=== PATIENT | male | born 1945 | race Caucasian/White ===

== ENCOUNTER → 2023-06-30 13:44 | Outpatient (REF) | payer OTHER, SELFPAY | LOC: RAD 13:44 | PROVIDERS: ATTENDING PHYSICIAN Surgery Vascular Surgery; FAMILY PHYSICIAN Family Medicine | DX: I77.9 Disorder of arteries and arterioles, unspecified (principal) | CPT/HCPCS: 93922; 93925 ==

== ENCOUNTER → 2023-08-26 09:12 | Outpatient (REF) | payer OTHER, SELFPAY | LOC: RAD 09:12 | PROVIDERS: ATTENDING PHYSICIAN Specialist; FAMILY PHYSICIAN Family Medicine | DX: R93.89 Abnormal findings on diagnostic imaging of other specified body structures (principal) | CPT/HCPCS: 74246 ==

== ENCOUNTER → 2023-09-10 06:28 | Day surgery (SDC) | payer OTHER, SELFPAY ==
[2023-09-10 07:59] LABS: Glucose - Point of Care 165 mg/dl (70-99)
== END ==
LOC: GI 06:28
PROVIDERS: ATTENDING PHYSICIAN Specialist
DX: R93.3 Abnormal findings on diagnostic imaging of other parts of digestive tract (principal); R94.8 Abnormal results of function studies of other organs and systems; K31.89 Other diseases of stomach and duodenum; Q39.6 Congenital diverticulum of esophagus; Q39.9 Congenital malformation of esophagus, unspecified
CPT/HCPCS: 43239; 88305; 82962; 88342

== ENCOUNTER → 2023-09-16 13:43 | Outpatient (REF) | payer OTHER, SELFPAY | LOC: RAD 13:43 | PROVIDERS: ATTENDING PHYSICIAN Surgery Vascular Surgery; FAMILY PHYSICIAN Family Medicine | DX: I77.9 Disorder of arteries and arterioles, unspecified (principal) | CPT/HCPCS: 93922; 93925 ==

== ENCOUNTER → 2024-01-12 13:51 | Outpatient (REF) | payer OTHER, SELFPAY | LOC: RAD 13:51 | PROVIDERS: ATTENDING PHYSICIAN Surgery Vascular Surgery | DX: I77.9 Disorder of arteries and arterioles, unspecified (principal) | CPT/HCPCS: 93922; 93925 ==

== ENCOUNTER 2024-07-06 13:41 | Inpatient (IN) | payer OTHER, SELFPAY ==
[2024-07-06 10:32] VITALS: BP 128/65
[2024-07-06 11:08] VITALS: BMI 28.7
--- NOTE | 2024-07-06 12:19 | ED.GENMED ---
History of Present Illness
General
Chief Complaint: Skin Problem
Source: patient and spouse
Time Seen by Provider: 07/06/24 12:09
History of Present Illness
History of Present Illness:
This patient is a 78-year-old male who presents emergency department complaints of redness warmth and swelling of the right lower extremity that he first noticed on Friday as a small area and now has gotten progressively worse. He denies
associated fever, chills, sweats, nausea, vomiting, numbness, tingling, difficulty walking, weakness, drainage, or other complaints. Patient has a chronic right foot wound that is under the care of his head operator and is healing well. He denies
drainage from this area. Patient states he had the exact same findings approximately 2 months ago while in [place] and was briefly hospitalized for cellulitis.
Past History
Past History
ED Past Medical History: CAD, GERD, HTN, Hypercholesterolemia, NIDDM, Other (neuropathy) and Other (gout)
ED Past Surgical History: Cardiac and Orthopedic
Social History
Tobacco: Former smoker
Alcohol: Occasional
Drug: None
Personal:
Living: with family
Employment: Retired
Family History
Family History: Other
Phy Exam
Physical Exam
Physical Exam:
GENERAL: Alert , in no apparent distress
EYE: pupils equal and reactive
NECK: Supple, no significant adenopathy.
ENT: o/p clr, mmm.
CARDIAC: Regular rate and rhythm .
LUNGS: Clear breath sounds bilaterally, no acute respiratory distress, no wheezes/rales/rhonchi
ABDOMEN: Soft, without focal tenderness, no r/g, no cvat
NEUROLOGICAL: Alert and oriented, no focal neuro deficits
SKIN: Warm and dry, skin intact except for wound at the plantar aspect of the right foot without associated redness or drainage. There is a diffuse area of erythema warmth and slight swelling of the right tib-fib area, proximal to the ankle and
distal to the knee, no open areas, no drainage, no fluctuance, minimally tender.
MUSCULOSKELETAL: Normal pulses, W ell perfused.
PSYCH: Normal and appropriate interaction.
Course
Orders/Labs/Results
Orders:
Orders
07/06/24 12:23
CeFAZolin SODIUM [Ancef] 1,000 mg IM NOW STA
07/06/24 12:25
Complete Blood Count/No Diff Urgent
07/06/24 13:06
CeFAZolin SODIUM [Ancef] 1,000 mg IV NOW STA
07/06/24 13:13
Basic Metabolic Panel Urgent
07/06/24 13:18
US Periph Venous LOWER Ext RT Urgent
Comment:
Reason For Exam: edema
07/06/24 13:34
Admit/Transfer Patient As Directed
Co-Sign Provider:
Level of Care: Inpatient admission
Assign to:: Medical/Surgical
Physician / Group: Yared/hospitalist
Diagnosis: RLE cellulitis
Reason for Hospitalization: RLE cellulitis
Expected length of stay greater than two midnights?: Yes
ELOS- Estimated Length of Stay in days: 3
I certify the patient meets the requirements for IP care: Yes
PRN Pain Medication Management As Directed
May give lesser potent ordered pain med per pt: Yes
preference::
Protocol:: Medication orders for pain may be administered in a
manner that supports deferring to patient preference
when the pt is:
- Requesting an ordered lesser potent pain medication.
Least to most potent pain medications are defined
as: acetaminophen < NSAID < tramadol < opioids
(morphine, oxycodone, hydromorphone).
- Requesting a lesser dose of the same medication IF
ORDERED.
- Requesting a less intrusive route of administration
if both routes are prescribed by the provider (PO <
IV).
07/06/24 13:36
Code Status As Directed
Resuscitation Status: Full Code
Abnormal Lab Results
07/06/24 07/06/24
12:25 13:13
WBC 11.6 H 10^3/uL
(4.8-10.8)
RBC 4.62 L 10^6/uL
(4.70-6.10)
Hgb 12.9 L g/dL
(13.0-18.0)
MCHC 32.3 L g/dL
(33.0-37.0)
RDW 16.2 H %
(11.5-14.5)
MPV 11.2 H fL
(7.4-10.4)
Chloride 109 H mmol/L
(98-107)
BUN 23 H mg/dl
(9-20)
Glucose 119 H mg/dl
(70-99)
07/06/24 12:25
07/06/24 13:13
Vital Signs
Initial and Last Documented VS:
Initial Vital Signs
Temp Pulse Resp BP Pulse Ox
97.4 F 96 20 128/65 99
07/06/24 10:32 07/06/24 10:32 07/06/24 10:32 07/06/24 10:32 07/06/24 10:32
Last Documented Vital Signs
Temp Pulse Resp BP Pulse Ox
97.4 F 96 20 128/65 99
07/06/24 10:32 07/06/24 10:32 07/06/24 10:32 07/06/24 10:32 07/06/24 10:32
*Critical Care Note
Total Time (30-74mins, 75-104mins- exclusive of procedures): Not Applicable
Update Note
Update Note:
Patient presents to the Emergency Department with ____right leg pain swelling and redness
Number and Complexity of Problems Addressed at the Encounter
� Chronic conditions affecting care:
� Acute Exacerbation and/or Progression of Chronic Illness:
� Differential Diagnosis includes: But not limited to abscess, cellulitis, sunburn, nonspecific rash, etc.
Amount and/or Complexity of Data to be Reviewed and Analyzed
� I performed an independent evaluation of and my interpretation is:
EKG:
CT:
Xrays:
Laboratory Studies:mild leukocytosis
Other:
� Review of other/old records reveals:
� Clinical information was obtained by an independent historian:
� Prescriptions/Medications Considered but not given:
� Further testing considered but not performed:
Risk of Complications and/or Morbidity or Mortality of Patient Management
� Social determinants of health affecting care:
� Discussion with other providers (PCP, Hospitalists, Consultants, etc):
� Escalation of care including admission/observation vs risk of discharge considered: Warmth swelling redness all consistent with clinical diagnosis of cellulitis. Given extent will recommend observation and IV antibiotics.
Patient is not septic, clinically stable and well-appearing. D/w hospitalist for admission/observation. US pending.
ED Attending Note
-
Portions of this chart may have been created with voice recognition software.� Occasional wrong word or��sound alike� substitutions may have occurred due to the inherent limitations of voice recognition software.
Discharge Plan
Departure
Patient Disposition: Admit
Date of Disposition: 07/06/24
Time of Disposition: 13:18
Presentation/result/management discussed w/ accepting MD/DO: Hospitalist
Condition: Good
Discharge Problem:
Cellulitis
Interventions
Interventions:
*Risk Screen - Suicide Last Done: 07/06/24 10:32
*General Assessment Last Done: 07/06/24 10:32
*Neglect/Abuse Screening Last Done: 07/06/24 10:32
ED-Skin Assessment Last Done: 07/06/24 11:09
[2024-07-06 12:45] LABS: Hemoglobin 12.9 g/dL (13.0-18.0); Mean Corp Hgb Conc. 32.3 g/dL (33.0-37.0); Mean Corpuscular Hgb 27.9 pg (27.0-31.0); Mean Corpuscular Volume 86.6 fL (80.0-94.0); Mean Platelet Volume 11.2 fL (7.4-10.4); Platelet Count 195 10^3/uL (130-400); Red Blood Cell Count 4.62 10^6/uL (4.70-6.10); Red Cell Dist. Width 16.2 % (11.5-14.5); White Blood Cell Count 11.6 10^3/uL (4.8-10.8)
[2024-07-06] MEDS: ANCEF 1000 MG IV (13:07)
--- NOTE | 2024-07-06 13:22 | HPS.HSE ---
Family Physician
-
Family Physician: Patricia Lowry MD
Chief Complaint
-
R leg swelling, warmth, redness
History of Present Illness
HPI: 78-year-old male with PMH CAD, GERD, hypertension, hyperlipidemia, NIDDM, neuropathy, gout; p/w redness, warmth and swelling of the right lower extremity that he first noticed on Friday.
He denied to associated fever, chills, sweats, nausea, vomiting, numbness, tingling, difficulty walking, weakness, drainage, or other complaints.
Patient has a chronic right foot plantar wound that is under the care of his clinical care coordinator and is healing well. He denies drainage from this area.
Patient states he had the exact same findings approximately 2 months ago while in [place] and was briefly hospitalized for cellulitis.
Medical History
Past Medical History
Past Medical History: Reports Other
Additional Past Medical History:
CAD,
GERD,
hypertension,
hyperlipidemia,
NIDDM,
neuropathy,
gout,
Chronic R foot plantar wound
Past Surgical History: Reports Other
Social History
Tobacco: Non-smoker
Personal:
Living: With Family
Family History
Family History: Not pertinent
Allergies / Home Medications
Allergies reflects when Allergies were last updated in [employer].
Home Medications with original date entered in [employer]
Allergy/Medication List:
Medications on admission are unable to be verified or confirmed at this time.
Review of Systems
-
Skin: Reports See HPI and Rash (R samuel redness )
Physical Exam
Vital Signs
Vital Signs
Temp Pulse Resp BP Pulse Ox
36.3 C 96 20 128/65 99
07/06/24 10:32 07/06/24 10:32 07/06/24 10:32 07/06/24 10:32 07/06/24 10:32
Physical Exam
General: Well Developed, Well Nourished, No Apparent Distress, Comfortable and Conversant
HEENT: NormoCephalic, Moist mucous membranes and Atraumatic
Respiratory: Clear and Non Labored Respirations; No Accessory Resp Muscle Use
Cardiac: S1/S2 and Regular Rhythm; No Murmur or Rub
GI: Soft, Non Tender, Non Distended and Normal Bowel Sounds; No Organomegaly
Rectal: Deferred by Provider
Musculoskeletal: No Clubbing and No Cyanosis
Skin: Rash (R samuel)
Neuro: Awake and Alert
Psych: Calm and Intact Judgment/Insight
Laboratory Results
-
07/06/24 12:25
Data Reviewed
-
Lab Data: Labs Reviewed by me
Impression/Plan
-
HPI: 78-year-old male with PMH CAD, GERD, hypertension, hyperlipidemia, NIDDM, neuropathy, gout; p/w redness, warmth and swelling of the right lower extremity that he first noticed on Friday.
He denied to associated fever, chills, sweats, nausea, vomiting, numbness, tingling, difficulty walking, weakness, drainage, or other complaints.
Patient has a chronic right foot plantar wound that is under the care of his clinical care coordinator and is healing well. He denies drainage from this area.
Patient states he had the exact same findings approximately 2 months ago while in [place] and was briefly hospitalized for cellulitis.
A/P:
# RLE cellulitis
Continue Ancef
Wound care consult
Check right leg ultrasound to evaluate for underlying DVT
Other medical conditions:
# CAD,
# GERD,
# hypertension,
# hyperlipidemia,
# diabetes,
# neuropathy,
# gout
DVT prophylaxis: PROGRAM AIDE Xarelto
Full code
Pending med [facility] currently
[2024-07-06 13:42] LABS: Blood Urea Nitrogen 23 mg/dl (9-20); Carbon Dioxide 25 mmol/L (22-30); Chloride 109 mmol/L (98-107); Estimated Creatinine Clearance 84 ml/min; Glucose 119 mg/dl (70-99); Potassium 5.1 mmol/L (3.5-5.1); Sodium 142 mmol/L (135-145); eGFR > 60.00
[2024-07-06 15:05] VITALS: BP 138/81
[2024-07-06 15:06] VITALS: BMI 31.3
[2024-07-06 15:12] VITALS: BP 138/81
[2024-07-06 17:27] LABS: Glucose - Point of Care 99 mg/dl (70-99)
[2024-07-06] MEDS: NOVOLOG FLEXPEN-LOW RESISTANCE SC (17:45)
[2024-07-06] MEDS: XARELTO 2.5 MG PO (20:20)
[2024-07-06 21:07] LABS: Glucose - Point of Care 164 mg/dl (70-99)
[2024-07-06 23:00] VITALS: BP 123/78
[2024-07-06] MEDS: ANCEF 10 IV (23:17)
[2024-07-07 06:44] LABS: Hematocrit 39.8 % (39.0-52.0); Mean Corp Hgb Conc. 32.7 g/dL (33.0-37.0); Mean Corpuscular Hgb 28.2 pg (27.0-31.0); Mean Corpuscular Volume 86.3 fL (80.0-94.0); Mean Platelet Volume 11.7 fL (7.4-10.4); Platelet Count 189 10^3/uL (130-400); Red Blood Cell Count 4.61 10^6/uL (4.70-6.10); Red Cell Dist. Width 15.9 % (11.5-14.5); White Blood Cell Count 9.7 10^3/uL (4.8-10.8)
[2024-07-07 07:01] LABS: Blood Urea Nitrogen 18 mg/dl (9-20); Calcium 9.7 mg/dl (8.4-10.2); Carbon Dioxide 22 mmol/L (22-30); Chloride 111 mmol/L (98-107); Estimated Creatinine Clearance 84 ml/min; Glucose 130 mg/dl (70-99); Magnesium 1.9 mg/dl (1.6-2.3); Potassium 4.5 mmol/L (3.5-5.1); Sodium 142 mmol/L (135-145); eGFR > 60.00
[2024-07-07] MEDS: NOVOLOG FLEXPEN-LOW RESISTANCE SC ×3 (07:26→16:57)
[2024-07-07 07:50] LABS: Glucose - Point of Care 129 mg/dl (70-99)
[2024-07-07 07:54] VITALS: BP 112/64
[2024-07-07] MEDS: ZESTRIL 10 MG PO (07:59)
[2024-07-07] MEDS: CRESTOR 20 MG PO (07:59)
[2024-07-07] MEDS: ZYLOPRIM 300 MG PO (07:59)
[2024-07-07] MEDS: LOW STRENGTH ASPIRIN 81 MG PO (07:59)
[2024-07-07] MEDS: PEPCID 40 MG PO (08:00)
[2024-07-07] MEDS: PROTONIX 40 MG PO (08:00)
[2024-07-07] MEDS: XARELTO 2.5 MG PO ×2 (08:00→20:57)
--- NOTE | 2024-07-07 08:57 | WOUNDNOTE ---
[facility] RN note: Patient admitted with RLE cellulitis. He is followed by embedded systems software engineer Dr. Avalos from the [place]. He is independent in his wound care.
See H&P for complete history.
PMH: CAD, RLE bypass, HTN, neuropathy, gout, chronic R plantar foot ulcer which is healing as per patient.
Wound Location and type/assessment: Patient admitted with: R plantar 1st MTH diabetic ulcer to subcutaneous layer or deeper. No bone probed. Wound undermines distally about .6cm under callus. He last saw his embedded systems software engineer 1.5 weeks ago. Toes warm.
Last arterial Doppler 01/12/24 R TBI .93, L CHRISTINE 1.07. RLE with diffuse erythema.
Appetite: good.
Pressure redistribution devices in place: [employer] Accumax. Patient is mobile. He has diabetic sneakers with off loading inserts.
Plan: R foot dressing changed using patient's wound care supplies (Silvercell, 2x2 gauze pads, secured with 2 inch Medipore tape). Patient aware to wear his off loading shoes during ambulation.
Will confirm orders with Dr. Vail and updated RN Tramaine.
Care plan to be updated and will follow as needed. Patient to follow up with his embedded systems software engineer for wound follow up.
--- NOTE | 2024-07-07 09:00 | WOUNDNOTE ---
[facility] RN note: Patient admitted with RLE cellulitis. He is followed by manufacturing operations manager Dr. Avalos from the [place]. He is independent in his wound care.
See H&P for complete history.
PMH: CAD, RLE bypass, HTN, neuropathy, gout, chronic R plantar foot ulcer which is healing as per patient.
Wound Location and type/assessment: Patient admitted with: R plantar 1st MTH diabetic ulcer to subcutaneous layer or deeper, appears clean. No bone probed. Wound undermines distally about .6cm under callus. He last saw his manufacturing operations manager 1.5 weeks ago.
+R pedal pulse heard faintly via portable Doppler as per MARTÍNEZ Redd A. L pedal pulse present. Toes warm. Last arterial Doppler 01/12/24 R TBI .93, L CHRISTINE 1.07. RLE with diffuse erythema. Patient stated he has follow up appointment with Dr. Redd including
follow up arterial Doppler in 2 weeks.
Appetite: good.
Pressure redistribution devices in place: Vers[employer] Accumax. Patient is mobile. He has diabetic sneakers with off loading inserts.
Plan: R foot dressing changed using patient's wound care supplies (Silvercell, 2x2 gauze pads, secured with 2 inch Medipore tape). Patient aware to wear his off loading shoes during ambulation.
Will confirm orders with Dr. Vail and updated MARTÍNEZ Redd.
Care plan to be updated and will follow as needed. Patient to follow up with Vascular surgeon and his manufacturing operations manager for wound follow up.
[2024-07-07 09:08] LABS: Glycohemoglobin (HgbA1c) 7.9 % (4.0-5.6)
--- NOTE | 2024-07-07 09:13 | WOUNDNOTE ---
R PLANTAR 1ST MTH
--- NOTE | 2024-07-07 09:14 | WOUNDNOTE ---
R PLANTAR 1ST MTH
[2024-07-07] MEDS: ANCEF 10 IV ×2 (10:09→23:19)
--- NOTE | 2024-07-07 10:21 | W.PN.HOSP.TC ---
Today's Communication/Plan
-
see A/P
Assessment / Plan
Assessment / Plan
HPI: 78-year-old male with PMH CAD, GERD, hypertension, hyperlipidemia, NIDDM, neuropathy, gout; p/w redness, warmth and swelling of the right lower extremity that he first noticed on Friday.
He denied to associated fever, chills, sweats, nausea, vomiting, numbness, tingling, difficulty walking, weakness, drainage, or other complaints.
Patient has a chronic right foot plantar wound that is under the care of his emt driver and is healing well. He denies drainage from this area.
Patient states he had the exact same findings approximately 2 months ago while in [place] and was briefly hospitalized for cellulitis.
A/P:
# RLE cellulitis
Continue Ancef, add doxycycline
Wound care on board
right leg ultrasound neg for DVT
Other medical conditions:
# CAD,
# GERD,
# hypertension,
# hyperlipidemia,
# diabetes,
# neuropathy,
# gout
DVT prophylaxis: WIRE ROLLER Xarelto
Full code
Anticipated Discharge: 24 - 48 hours
Subjective/Interval History
-
Date of Service: July 07, 2024
Objective Data
-
Labs:
Laboratory Results
07/07/24
06:18
WBC 9.7
Hgb 13.0
Hct 39.8
Plt Count 189
Sodium 142
Potassium 4.5
Chloride 111 H
Carbon Dioxide 22
BUN 18
Creatinine 0.8
Glucose 130 H
Calcium 9.7
Vital Signs:
Vital Signs
Temp Pulse Resp BP Pulse Ox
36.6 C 80 18 112/64 98
07/07/24 07:54 07/07/24 07:54 07/07/24 07:54 07/07/24 07:54 07/07/24 07:54
I&O
07/06/24 07/07/24 07/08/24
06:59 06:59 06:59
Intake Total 480 / 480
Balance 480 / 480
Review of Systems
-
All other systems: Reviewed and negative
Skin: Reports Rash (R leg)
Physical Exam
-
General: Well Developed, Well Nourished, No Apparent Distress, Comfortable and Conversant; Negative Respiratory Distress
HEENT: Normocephalic, Atraumatic, Nose Appears Normal and Ears Appear Normal; Negative Oxygen
Respiratory: Clear to Auscultation and Non Labored Respirations; Negative Accessory Resp Muscle Use
Cardiac: Regular Rhythm and S1/S2
GI: Soft, Nontender, Nondistended and Normal Bowel Sounds
Skin: Warm, Dry and Rash (R leg)
Neuro: Awake, Alert, Oriented and AO x 3
Psych: Calm and Intact Judgement/Insight
Data Reviewed
-
Ultrasound: Report Reviewed by me
Labs: Labs Reviewed by me
[2024-07-07] MEDS: VIBRAMYCIN 100 MG PO ×2 (11:02→20:57)
[2024-07-07 11:50] LABS: Glucose - Point of Care 125 mg/dl (70-99)
[2024-07-07] MEDS: DULCOLAX 10 MG RECTAL (15:12)
--- NOTE | 2024-07-07 16:09 | DOWNTIME ---
There was a [employer] Client Qa Test Lead Downtime on 07/07/2024 from 1230 to 07/07/2024 at 1550. Downtime documentation of patient's care, including medication administrations, has been reconciled in the electronic record per guidelines. Refer to the
patient's paper chart under the miscellaneous tab to see printed paper medication records and downtime forms.
[2024-07-07 16:31] VITALS: BP 131/62
[2024-07-07 16:34] LABS: Glucose - Point of Care 178 mg/dl (70-99)
--- NOTE | 2024-07-07 17:23 | CM ---
Addendum entered by ELISHA Robles 07/07/24 17:32:
Patient does have a CPAP.
Original Note:
Met with patient to obtain information for assessment. Patient stated that he lives with his in a single multi story home with three steps to enter. He described himself as independent with his ADLs, personal care, dressing and bathing. He can
cook, clean, do household personal assistant and laundry. He has had VN in the past but is not current. He was in a SNF years ago. He has no DME.
Patient has a prescription plan and uses, [facility] for all of his medications.
Patient's PCP, Patricia Lowry.
Plan: Case management will continue to follow and assist with discharge planning. Will watch for VN needs.
[2024-07-07 21:07] LABS: Glucose - Point of Care 199 mg/dl (70-99)
[2024-07-07 23:56] VITALS: BP 108/64
[2024-07-08] MEDS: SENOKOT-S 1 TABLET PO ×2 (06:24→20:42)
[2024-07-08] MEDS: MIRALAX 17 GRAMS PO (06:25)
[2024-07-08 07:00] VITALS: BP 123/68
[2024-07-08 07:06] LABS: Hematocrit 41.4 % (39.0-52.0); Hemoglobin 13.3 g/dL (13.0-18.0); Mean Corp Hgb Conc. 32.1 g/dL (33.0-37.0); Mean Corpuscular Hgb 27.9 pg (27.0-31.0); Mean Corpuscular Volume 86.8 fL (80.0-94.0); Mean Platelet Volume 11.7 fL (7.4-10.4); Platelet Count 199 10^3/uL (130-400); Red Blood Cell Count 4.77 10^6/uL (4.70-6.10); Red Cell Dist. Width 15.9 % (11.5-14.5); White Blood Cell Count 9.3 10^3/uL (4.8-10.8)
[2024-07-08 07:11] LABS: Glucose - Point of Care 151 mg/dl (70-99)
[2024-07-08 07:30] LABS: Blood Urea Nitrogen 21 mg/dl (9-20); Calcium 9.8 mg/dl (8.4-10.2); Carbon Dioxide 23 mmol/L (22-30); Chloride 110 mmol/L (98-107); Estimated Creatinine Clearance 84 ml/min; Glucose 142 mg/dl (70-99); Sodium 142 mmol/L (135-145); eGFR > 60.00
[2024-07-08] MEDS: NOVOLOG FLEXPEN-LOW RESISTANCE SC ×3 (08:48→17:33)
[2024-07-08] MEDS: PROTONIX 40 MG PO (08:49)
[2024-07-08] MEDS: ZYLOPRIM 300 MG PO (08:49)
[2024-07-08] MEDS: ZESTRIL 10 MG PO (08:49)
[2024-07-08] MEDS: XARELTO 2.5 MG PO ×2 (08:49→20:34)
[2024-07-08] MEDS: VIBRAMYCIN 100 MG PO ×2 (08:49→20:34)
[2024-07-08] MEDS: PEPCID 40 MG PO (08:49)
[2024-07-08] MEDS: LOW STRENGTH ASPIRIN 81 MG PO (08:49)
--- NOTE | 2024-07-08 09:53 | W.PN.HOSP.TC ---
Today's Communication/Plan
-
see A/P
Assessment / Plan
Assessment / Plan
HPI: 78-year-old male with PMH CAD, GERD, hypertension, hyperlipidemia, NIDDM, neuropathy, gout; p/w redness, warmth and swelling of the right lower extremity that he first noticed on Friday.
He denied to associated fever, chills, sweats, nausea, vomiting, numbness, tingling, difficulty walking, weakness, drainage, or other complaints.
Patient has a chronic right foot plantar wound that is under the care of his elevator worker and is healing well. He denies drainage from this area.
Patient states he had the exact same findings approximately 2 months ago while in [place] and was briefly hospitalized for cellulitis.
A/P:
# RLE cellulitis
Continue Ancef, added doxycycline
Wound care on board
right leg ultrasound neg for DVT
Rash improving, cont IV Abx for 1 more day
Other medical conditions:
# CAD,
# GERD,
# hypertension,
# hyperlipidemia,
# diabetes,
# neuropathy,
# gout
DVT prophylaxis: RN HEMATOLOGY Xarelto
Full code
Anticipated Discharge: Within 24 hours
Subjective/Interval History
-
Date of Service: July 08, 2024
Objective Data
-
Labs:
Laboratory Results
07/08/24
06:26
WBC 9.3
Hgb 13.3
Hct 41.4
Plt Count 199
Sodium 142
Potassium 5.0
Chloride 110 H
Carbon Dioxide 23
BUN 21 H
Creatinine 0.8
Glucose 142 H
Calcium 9.8
Vital Signs:
Vital Signs
Temp Pulse Resp BP Pulse Ox
36.4 C 78 18 123/68 100
07/08/24 07:00 07/08/24 07:00 07/08/24 07:00 07/08/24 07:00 07/08/24 07:00
I&O
07/07/24 07/08/24 07/09/24
06:59 06:59 06:59
Intake Total 480 / 480 480 / 480
Balance 480 / 480 480 / 480
Review of Systems
-
All other systems: Reviewed and negative
Skin: Reports Rash (R leg rash improving )
Physical Exam
-
General: Well Developed, Well Nourished, No Apparent Distress, Comfortable and Conversant; Negative Respiratory Distress
HEENT: Normocephalic, Atraumatic, Nose Appears Normal and Ears Appear Normal; Negative Oxygen
Respiratory: Clear to Auscultation and Non Labored Respirations; Negative Accessory Resp Muscle Use
Cardiac: Regular Rhythm and S1/S2
GI: Soft, Nontender, Nondistended and Normal Bowel Sounds
Skin: Warm, Dry and Rash (R leg rash improving )
Neuro: Awake, Alert, Oriented and AO x 3
Psych: Calm and Intact Judgement/Insight
Data Reviewed
-
Ultrasound: Report Reviewed by me
Labs: Labs Reviewed by me
[2024-07-08] MEDS: ANCEF 10 IV ×2 (11:28→22:00)
[2024-07-08 11:29] LABS: Glucose - Point of Care 163 mg/dl (70-99)
[2024-07-08 17:00] VITALS: BP 113/60
[2024-07-08 17:28] LABS: Glucose - Point of Care 165 mg/dl (70-99)
[2024-07-08] MEDS: CRESTOR 20 MG PO (20:34)
[2024-07-08 21:22] LABS: Glucose - Point of Care 266 mg/dl (70-99)
[2024-07-08 23:18] VITALS: BP 107/66
[2024-07-09 06:39] LABS: Hematocrit 38.4 % (39.0-52.0); Hemoglobin 12.3 g/dL (13.0-18.0); Mean Corpuscular Hgb 27.9 pg (27.0-31.0); Mean Corpuscular Volume 87.1 fL (80.0-94.0); Mean Platelet Volume 11.3 fL (7.4-10.4); Platelet Count 202 10^3/uL (130-400); Red Blood Cell Count 4.41 10^6/uL (4.70-6.10); Red Cell Dist. Width 15.9 % (11.5-14.5); White Blood Cell Count 9.6 10^3/uL (4.8-10.8)
[2024-07-09] MEDS: MIRALAX 17 GRAMS PO (06:40)
[2024-07-09 07:00] LABS: Blood Urea Nitrogen 22 mg/dl (9-20); Calcium 9.6 mg/dl (8.4-10.2); Carbon Dioxide 26 mmol/L (22-30); Chloride 110 mmol/L (98-107); Estimated Creatinine Clearance 84 ml/min; Glucose 167 mg/dl (70-99); Potassium 4.6 mmol/L (3.5-5.1); Sodium 143 mmol/L (135-145); eGFR > 60.00
[2024-07-09 07:36] LABS: Glucose - Point of Care 173 mg/dl (70-99)
[2024-07-09 07:52] VITALS: BP 111/70
[2024-07-09] MEDS: VIBRAMYCIN 100 MG PO ×2 (08:26→21:10)
[2024-07-09] MEDS: ZYLOPRIM 300 MG PO (08:26)
[2024-07-09] MEDS: ZESTRIL 10 MG PO (08:26)
[2024-07-09] MEDS: PROTONIX 40 MG PO (08:26)
[2024-07-09] MEDS: PEPCID 40 MG PO (08:26)
[2024-07-09] MEDS: XARELTO 2.5 MG PO ×2 (08:26→21:10)
[2024-07-09] MEDS: LOW STRENGTH ASPIRIN 81 MG PO (08:26)
[2024-07-09] MEDS: NOVOLOG FLEXPEN-LOW RESISTANCE SC (08:34)
--- NOTE | 2024-07-09 10:10 | W.PN.HOSP.TC ---
Today's Communication/Plan
-
see A/P
Assessment / Plan
Assessment / Plan
HPI: 78-year-old male with PMH CAD, GERD, hypertension, hyperlipidemia, NIDDM, neuropathy, gout; p/w redness, warmth and swelling of the right lower extremity that he first noticed on Friday.
He denied to associated fever, chills, sweats, nausea, vomiting, numbness, tingling, difficulty walking, weakness, drainage, or other complaints.
Patient has a chronic right foot plantar wound that is under the care of his newspaper managing editor and is healing well. He denies drainage from this area.
Patient states he had the exact same findings approximately 2 months ago while in [place] and was briefly hospitalized for cellulitis.
A/P:
# RLE cellulitis
Continue Ancef, added doxycycline
Wound care on board
right leg ultrasound neg for DVT
cellulitis improving slowly, also with diminished pulses by bedside Doppler, Vascular CS
Check BL LE CHRISTINE
Other medical conditions:
# CAD,
# GERD,
# hypertension,
# hyperlipidemia,
# diabetes,
# neuropathy,
# gout
DVT prophylaxis: FINANCIAL OPERATIONS CLERK Xarelto
Full code
Anticipated Discharge: 24 - 48 hours
Subjective/Interval History
-
Date of Service: July 09, 2024
Objective Data
-
Labs:
Laboratory Results
07/09/24
06:17
WBC 9.6
Hgb 12.3 L
Hct 38.4 L
Plt Count 202
Sodium 143
Potassium 4.6
Chloride 110 H
Carbon Dioxide 26
BUN 22 H
Creatinine 0.8
Glucose 167 H
Calcium 9.6
Vital Signs:
Vital Signs
Temp Pulse Resp BP Pulse Ox
36.4 C 89 18 111/70 98
07/09/24 07:52 07/09/24 07:52 07/09/24 07:52 07/09/24 07:52 07/09/24 07:52
I&O
07/08/24 07/09/24 07/10/24
06:59 06:59 06:59
Intake Total 480 / 480 420 / 420
Balance 480 / 480 420 / 420
--- NOTE | 2024-07-09 10:49 | CON.VAS ---
Consultation
Consultation Request
Date/Time Consultation Performed: 07/09/24 12:00
Performing Provider: Ashlyn
Reason for Consultation: Cellulitis/chronic right foot wound
Medical History
-
Chief Complaint: RLE swelling, redness
History of Present Illness:
78 yo male with PMH significant for CAD, HTN, hyperlipidemia, NIDDM, neuropathy presented to our ER on 07/06/24 for RLE cellulitis. Pt admitted to IV antibiotics. Pt had noted redness, warmth and swelling to the RLE on Friday. Denied any other
symptomatology. Patient has a chronic right plantar wound that is followed by his service tech outpatient. He denies drainage from this area. Pt was hospitalized for the same issue 2 months ago while in [place].
Last office visit 01/12/[address] Redd. At that time ultrasound was reviewed and bypass patent, no stenosis noted, distal anastomosis without significant velocity elevation. Plan at that time was for ultrasound in 6 months as well as follow-up
which would have been in a few weeks from now.
Vascular consultation for diminished pulse exam. Pt seen at bedside this afternoon. Right foot plantar wound pictures in wound care notes. Pt has easily palpable DP and PT pulses in the right foot. Foot is warm and pink. Wound dry. Erythema marked
with skin marker from right knee to ankle. Mildly edematous to that area as well.
Vascular surgery history:
12/22/18- aortogram, pelvic angiogram, LLE arteriogram, balloon angioplasty L TP trunk and peroneal artery.
09/27/20- aortogram, pelvic angiogram, RLE arteriogram- nonhealing R foot wound
11/29/20- R below knee popliteal artery to distal posterior tibial artery bypass with reversed RUE cephalic vein.
07/31/22- Aortogram and pelvic angiogram. 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
Past Medical History
Past Medical History: Other (CAD, GERD, hypertension, hyperlipidemia, NIDDM, neuropathy, gout, chronic right plantar wound)
Past Surgical History: Other (RLE bypass)
Social History
Tobacco: Non-Smoker
Personal:
Living: With Family
Family History
Family History: Reviewed & Not Pertinent
Allergies / Home Medications
Allergy/AdvReac Type Severity Reaction Status Date / Time
clindamycin Allergy heartburn Verified 07/06/24 10:35
Gadolinium-Containing Allergy Hives Verified 07/06/24 10:35
Contrast Medi
morphine Allergy 'don't Verified 07/06/24 10:35
give it to
me'
arrested
one time
�Medication �Instructions �Recorded �Confirmed �Type
cyanocobalamin (vitamin B-12) 1,000 mcg PO DAILY Supplement 07/29/14 07/06/24 History
1,000 mcg tablet
loratadine 10 mg tablet 10 mg PO DAILY Allergies 07/29/14 07/06/24 History
pantoprazole 40 mg tablet,delayed 40 mg PO DAILY Gastrointestinal 12/22/16 07/06/24 History
release issue
allopurinol 300 mg tablet 300 mg PO DAILY Gout 12/18/18 07/06/24 History
lisinopril 10 mg tablet 10 mg PO DAILY Blood pressure 12/18/18 07/06/24 History
multivitamin with folic acid 400 1 tab PO DAILY Supplement 12/18/18 07/06/24 History
mcg tablet (Tab-A-Katie)
nitroglycerin 0.4 mg sublingual 0.4 mg sublingual [id number] PRN 12/18/18 07/06/24 History
tablet chest pain
empagliflozin 25 mg tablet 12.5 mg PO DAILY Diabetes 09/20/20 07/06/24 History
(Jardiance)
glipizide 10 mg tablet 10 mg PO BID Diabetes 09/20/20 07/06/24 History
rivaroxaban 2.5 mg tablet (Xarelto) 2.5 mg PO BID #120 tabs 12/01/20 07/06/24 Rx
ascorbic acid (vitamin C) 500 mg 500 mg PO DAILY Supplement 07/31/22 07/06/24 History
tablet (Vitamin C)
aspirin 81 mg chewable tablet 81 mg PO DAILY #90 tabs 07/31/22 07/06/24 Rx
aluminum hydrox-magnesium carb 160 2 tab PO DAILYPRN PRN gerd 07/06/24 07/06/24 History
mg-105 mg chewable tablet
biotin 10,000 mcg capsule 10,000 mcg PO DAILY Supplement 07/06/24 07/06/24 History
gabapentin 100 mg capsule 100 mg PO DAILYPRN PRN mild pain 07/06/24 07/06/24 History
metformin 1,000 mg tablet 1,000 mg PO BID Diabetes 07/06/24 07/06/24 History
rosuvastatin 40 mg tablet (Crestor) 40 mg PO HS High Cholesterol 07/06/24 07/06/24 History
Review of Systems
-
History Source: Patient
All other systems: Negative unless noted
Constitutional: Reports No Symptoms
EENT: Reports No Symptoms
Respiratory: Reports No Symptoms
Cardiac: Reports No Symptoms
Vascular: Denies Leg Pain / Claudication
Abdomen/GI: Reports No Symptoms
: Reports No Symptoms
Musculoskeletal: Reports Edema
Skin: Reports Other (redness/swelling right samuel, chronic plantar wound)
Neurological: Reports No Symptoms
Physical Exam
Vital Signs
Temp Pulse Resp BP Pulse Ox
97.5 F 89 18 111/70 98
07/09/24 07:52 07/09/24 07:52 07/09/24 07:52 07/09/24 07:52 07/09/24 07:52
Lab Results
07/09/24 06:17
07/09/24 06:17
Physical Exam
General: No Apparent Distress
HEENT: Normocephalic and Atraumatic
Respiratory: Non Labored Respirations
Cardiac: Negative JVD
GI: Soft and Non Tender
Musculoskeletal: No Clubbing, No Cyanosis and Edema (slight to the right samuel)
Skin: Warm and Other (see wound care notes)
Neuro: Awake, Alert and Oriented
Psych: Calm
Pulses: Right Dorsalis Pedis: +2 and Right Posterior Tibial: +2
Assessment / Plan
-
78 yo male well known to vascular service admitted presently for cellulitis
Pt with known RLE bypass, chronic right plantar wound
Palpable PT and DP pulse on the right side
Plan:
-LE US iliana/tbi pending
-Antibiotics
-local wound care
-Will follow up with pt with US results
Data Reviewed
-
Labs: Labs Reviewed by me
[2024-07-09] MEDS: ANCEF 10 IV ×2 (11:12→20:50)
[2024-07-09 11:44] LABS: Glucose - Point of Care 184 mg/dl (70-99)
[2024-07-09] MEDS: NOVOLOG FLEXPEN-LOW RESISTANCE 1 UNITS SC ×2 (12:14→17:44)
[2024-07-09 15:55] VITALS: BP 114/54
[2024-07-09 17:04] LABS: Glucose - Point of Care 192 mg/dl (70-99)
[2024-07-09] MEDS: CRESTOR 20 MG PO (17:45)
[2024-07-09 21:03] LABS: Glucose - Point of Care 245 mg/dl (70-99)
[2024-07-09 23:35] VITALS: BP 128/67
[2024-07-10] MEDS: ANCEF 10 IV ×2 (03:41→12:12)
[2024-07-10 07:00] VITALS: BP 129/75
[2024-07-10 08:01] LABS: Glucose - Point of Care 148 mg/dl (70-99)
[2024-07-10 08:54] LABS: Hematocrit 40.2 % (39.0-52.0); Hemoglobin 12.6 g/dL (13.0-18.0); Mean Corp Hgb Conc. 31.3 g/dL (33.0-37.0); Mean Corpuscular Hgb 27.5 pg (27.0-31.0); Mean Corpuscular Volume 87.6 fL (80.0-94.0); Mean Platelet Volume 11.8 fL (7.4-10.4); Platelet Count 201 10^3/uL (130-400); Red Blood Cell Count 4.59 10^6/uL (4.70-6.10); White Blood Cell Count 8.6 10^3/uL (4.8-10.8)
[2024-07-10] MEDS: NOVOLOG FLEXPEN-LOW RESISTANCE SC (09:03)
[2024-07-10] MEDS: VIBRAMYCIN 100 MG PO (09:05)
[2024-07-10] MEDS: ZESTRIL 10 MG PO (09:05)
[2024-07-10] MEDS: PEPCID 40 MG PO (09:05)
[2024-07-10] MEDS: XARELTO 2.5 MG PO (09:05)
[2024-07-10] MEDS: PROTONIX 40 MG PO (09:05)
[2024-07-10] MEDS: LOW STRENGTH ASPIRIN 81 MG PO (09:05)
[2024-07-10] MEDS: ZYLOPRIM 300 MG PO (09:06)
--- NOTE | 2024-07-10 09:15 | W.PN.UPDATE ---
Update Note
Progress Note Update
Studies reviewed
Bypass patent RLE
TBI normal
Cellulitis improving
F/U with Redd in the office as scheduled
Call with questions/concerns
[id number]
Vascular Surgery
[2024-07-10 09:45] LABS: Blood Urea Nitrogen 22 mg/dl (9-20); Calcium 9.8 mg/dl (8.4-10.2); Carbon Dioxide 22 mmol/L (22-30); Chloride 108 mmol/L (98-107); Estimated Creatinine Clearance 84 ml/min; Glucose 167 mg/dl (70-99); Potassium 4.8 mmol/L (3.5-5.1); Sodium 142 mmol/L (135-145); eGFR > 60.00
[2024-07-10 11:36] LABS: Glucose - Point of Care 205 mg/dl (70-99)
--- NOTE | 2024-07-10 11:39 | W.PN.HOSP.TC ---
Today's Communication/Plan
-
Discharge after noon dose of ancef.
Assessment / Plan
Assessment / Plan
HPI/presentation:
78-year-old male with PMH of
CAD,
GERD,
hypertension,
hyperlipidemia,
NIDDM,
neuropathy,
gout;
p/w redness, warmth and swelling of the right lower extremity that he first noticed on Friday. He denied to associated fever, chills, sweats, nausea, vomiting, numbness, tingling, difficulty walking, weakness, drainage, or other complaints.
Patient has a chronic right foot plantar wound that is under the care of his bag repairer and is healing well. He denies drainage from this area. Patient states he had the exact same findings approximately 2 months ago while in [place] and was briefly
hospitalized for cellulitis.
A/P and hospital course by problem:
1. RLE cellulitis - resolving
Take todays noon dose of Ancef, then d/c home on keflex and the added doxycycline
Wound care on was consulted for his care
right leg ultrasound neg for DVT
cellulitis improving
He had diminished pulses by bedside Doppler, Vascular CS
Checked BL LE CHRISTINE - no acute issues
Other medical conditions that did not require intervention:
# CAD,
# GERD,
# hypertension,
# hyperlipidemia,
# diabetes,
# neuropathy,
# gout
DVT prophylaxis: HAND II TUBE BENDER Xarelto
Full code
Anticipated Discharge: Today
Subjective/Interval History
-
Date of Service: July 10, 2024
Feeling well. Leg much better. Wants to go home.
Objective Data
-
Labs:
Laboratory Results
07/10/24
07:44
WBC 8.6
Hgb 12.6 L
Hct 40.2
Plt Count 201
Sodium 142
Potassium 4.8
Chloride 108 H
Carbon Dioxide 22
BUN 22 H
Creatinine 0.8
Glucose 167 H
Calcium 9.8
Vital Signs:
Vital Signs
Temp Pulse Resp BP Pulse Ox
97.5 F 78 16 129/75 99
07/10/24 07:00 07/10/24 07:00 07/10/24 07:00 07/10/24 07:00 07/10/24 07:00
I&O
07/09/24 07/10/24 07/11/24
06:59 06:59 06:59
Intake Total 420 / 420 1200 / 1200
Balance 420 / 420 1200 / 1200
Review of Systems
-
History Source: Patient
All other systems: Reviewed and negative
Physical Exam
-
General: Well Developed, Well Nourished, No Apparent Distress and Comfortable
HEENT: Normocephalic, Atraumatic, Nose Appears Normal and Ears Appear Normal
Respiratory: Clear to Auscultation
Cardiac: Regular Rhythm and S1/S2
GI: Soft, Nontender and Nondistended
Musculoskeletal: No Clubbing, No Cyanosis and No Edema
Skin: Warm and Dry
Neuro: Awake, Alert, Oriented and AO x 3
Psych: Calm
Data Reviewed
-
Labs: Labs Reviewed by me
--- NOTE | 2024-07-10 11:55 | W.DCSUMMARY ---
Discharge Summary
Discharge Data
Date of Admission: 07/06/24
Date of Discharge: 07/10/24
Total time spent discharging patient (in min): 45
-
Pending Results: No
Hospital Course
HPI/ initial presentation:
78-year-old male with PMH and chronic diagnoses of:
CAD,
GERD,
hypertension,
hyperlipidemia,
NIDDM,
neuropathy,
gout;
p/w redness, warmth and swelling of the right lower extremity that he first noticed on Friday. He denied to associated fever, chills, sweats, nausea, vomiting, numbness, tingling, difficulty walking, weakness, drainage, or other complaints.
Patient has a chronic right foot plantar wound that is under the care of his day care aide and is healing well. He denies drainage from this area. Patient states he had the exact same findings approximately 2 months ago while in [place] and was briefly
hospitalized for cellulitis.
A/P and hospital course by problem:
1. RLE cellulitis - resolving
plan is to take today's noon dose of Ancef, then d/c home on keflex and the added doxycycline
Wound care on was consulted for his care
right leg ultrasound neg for DVT
cellulitis improving
He had diminished pulses by bedside Doppler, Vascular CS
Checked BL LE CHRISTINE - no acute issues
Follow up with PCP next week
Other medical conditions that did not require intervention:
# CAD,
# GERD,
# hypertension,
# hyperlipidemia,
# diabetes,
# neuropathy,
# gout
DVT prophylaxis: CAMERA REPAIRMAN Xarelto
Full code
Discharge Plan
-
Patient Disposition: Home (Routine Discharge)
Discharge Diagnosis/Procedures: Cellulitis
Diet: As tolerated
Activity: As tolerated
Driving Restrictions: As prior to admission
Bathing Restrictions: None
Activity Restrictions/Additional Instructions:
Wound Care Instructions
R plantar foot ulcer-clean with saline, Silvercel, 2x2 gauze pads, secure with Medipore type tape, change daily and as needed for drainage.
Off loading shoes.
Follow up with vascular surgeon.
Follow up with your day care aide for wound follow up.
Referrals:
Patricia Lowry MD [Family Provider, [facility]]
Diaz Redd MD [Active, Vascular Surgery] - 07/30/24 2:45 pm
Referral Note: Vascular surgery office follow up (we cancelled your ultrasound appt since we completed it during your admission)
Prescriptions:
New
doxycycline hyclate 100 mg Capsule
100 mg PO Q12 Qty: 20 0RF
famotidine 40 mg Tablet
40 mg PO DAILY Qty: 30 0RF
cephalexin 500 mg capsule
500 mg PO Q8H Qty: 30 0RF
Continued
cyanocobalamin (vitamin B-12) 1,000 MCG tablet
1,000 mcg PO DAILY
loratadine 10 MG tablet
10 mg PO DAILY
pantoprazole 40 MG tablet,delayed release (DR/EC)
40 mg PO DAILY
lisinopril 10 MG tablet
10 mg PO DAILY
nitroglycerin 0.4 MG tablet, sublingual
0.4 mg sublingual [id number] PRN (Reason: chest pain)
Patient Comments:
allopurinol 300 MG tablet
300 mg PO DAILY
multivitamin with folic acid [Tab-A-Katie] 1 TABLET tablet
1 tab PO DAILY
glipizide 10 MG tablet
10 mg PO BID
Jardiance 25 MG tablet
12.5 mg PO DAILY
rivaroxaban [Xarelto] 2.5 MG tablet
2.5 mg PO BID Qty: 120 0RF
ascorbic acid (vitamin C) [Vitamin C] 500 mg Tablet
500 mg PO DAILY
aspirin 81 mg Tablet,Chewable
81 mg PO DAILY Qty: 90 0RF
biotin 10,000 mcg Capsule
10,000 mcg PO DAILY
metformin 1,000 mg Tablet
1,000 mg PO BID
gabapentin 100 mg Capsule
100 mg PO DAILYPRN PRN (Reason: mild pain)
aluminum hydrox-magnesium carb 160-105 mg Tablet,Chewable
2 tab PO DAILYPRN PRN (Reason: gerd)
rosuvastatin [Crestor] 40 mg Tablet
40 mg PO HS
Discharge Orders:
Discharge Patient (As Directed); Ordered 07/10/24
Ordered By: Esau Brenner
Discharge Date and Time
Print Language: FRENCH
[2024-07-10] MEDS: NOVOLOG FLEXPEN-LOW RESISTANCE 2 UNITS SC (12:12)
[2024-07-10 12:45] VITALS: BP 134/73
== END 2024-07-10 14:10 | disposition home or self-care (01) | DRG 603 ==
LOC: 4 EAST ACU 13:41
PROVIDERS: ADMITTING PHYSICIAN Internal Medicine; ATTENDING PHYSICIAN Internal Medicine; CONSULT PHYSICIAN Surgery Vascular Surgery; EMERGENCY PHYSICIAN Emergency Medicine; FAMILY PHYSICIAN Family Medicine
DX: L03.115 Cellulitis of right lower limb (principal); L97.419 Non-pressure chronic ulcer of right heel and midfoot with unspecified severity; M79.89 Other specified soft tissue disorders; E11.40 Type 2 diabetes mellitus with diabetic neuropathy, unspecified; E78.00 Pure hypercholesterolemia, unspecified; I10 Essential (primary) hypertension; I25.10 Atherosclerotic heart disease of native coronary artery without angina pectoris; K21.9 Gastro-esophageal reflux disease without esophagitis; Z87.891 Personal history of nicotine dependence; Z88.1 Allergy status to other antibiotic agents; Z88.5 Allergy status to narcotic agent; Z88.8 Allergy status to other drugs, medicaments and biological substances; Z79.84 Long term (current) use of oral hypoglycemic drugs; Z79.01 Long term (current) use of anticoagulants; Z79.82 Long term (current) use of aspirin
CPT/HCPCS: 80048; 82962; 83036; 83735; 85027; 93922; 93925; 93971; 96372; 96374; 99284

== ENCOUNTER 2024-08-24 03:58 | Inpatient (IN) | payer OTHER, SELFPAY ==
[2024-08-23 19:18] VITALS: BP 121/69
--- NOTE | 2024-08-23 21:33 | ED.GENMED ---
History of Present Illness
General
Chief Complaint: Weakness
Source: patient
Exam Limitations: none
Time Seen by Provider: 08/23/24 21:17
History of Present Illness
History of Present Illness:
78yoM with a history of coronary artery disease, type 2 diabetes, hypertension, hyperlipidemia presenting via EMS for evaluation of weakness. Patient woke up this morning feeling unwell. He started to develop generalized weakness throughout the
day. He noticed some worsening redness to his right lower leg. He was seen by his sludge filtration attendant earlier today and was given a prescription for an antibiotic but he has not started this yet. He had chills while he was at the podiatry office but
denies any currently. He has also been urinary frequently and having urinary urgency. He was so weak today that he was unable to get off the couch and EMS was called. Of note, his glucose was in the 400s this afternoon. He denies any fevers,
vomiting, diarrhea, abdominal pain, chest pain, shortness of breath.
Past History
Past History
ED Past Medical History: CAD, GERD, HTN, Hypercholesterolemia, NIDDM, Other (neuropathy) and Other (gout)
ED Past Surgical History: Cardiac and Orthopedic
Social History
Tobacco: Former smoker
Alcohol: Occasional
Drug: None
Personal:
Living: with family
Employment: Retired
Family History
Family History: Other
Phy Exam
General Physical Exam
General Presentation: no apparent distress
General Skin: warm and dry
General Habitus: normal and elderly
General Mental: alert
General Hydration: dry mucous membranes
ENT Exam
ENT Exam: normocephalic
Cardiovascular Exam
Cardiovascular Exam: systolic murmur and tachycardia
Pulmonary Exam
Pulmonary Exam: lungs clear, no respiratory distress, no rales, no crackles, no rhonchi and no wheezing
Gastrointestinal Exam
Gastrointestinal Exam: non tender, soft, non distended and no cva tenderness
Neurological Exam
Neurological Exam: alert
Kelly Coma Scale
Eye Opening: Spontaneous
Verbal Response: Oriented
Motor Response: Obeys Commands
GCS Total Score: 15
Skin Exam
Skin Exam: warm/dry and erythema (Erythema/warmth noted to the R anterior lower leg. No fluctuance, crepitus, drainage noted.)
Psychiatric Exam
Psychiatric Exam: normal mood/affect
Course
Orders/Labs/Results
Orders:
Orders
08/23/24 19:22
EKG [Electrocardiogram (*1)] Urgent
Reason for Study: Tachycardia
08/23/24 19:23
EKG- Treatment ONCE
08/23/24 21:32
Bedside Glucose- Treatment ONCE
Cardiac Monitoring- Treatment ONCE
08/23/24 21:44
0.9% Sodium Chloride 500 ml [Nss] 500 ml IV BOLUS
08/23/24 21:49
Complete Blood Count/With Diff Urgent
Lactate Level [Lactic Acid] Urgent
Magnesium Urgent
08/23/24 21:56
Venous Doppler Lwr Ext Rt [US Periph Venous LOWER Ext RT] Urgent
Comment:
Reason For Exam: R leg swelling
08/23/24 22:04
CR Chest - 2 Views Urgent
Comment:
Reason For Exam: weakness
08/23/24 22:08
CT Abd/pel Without Iv Or Oral Urgent
Comment:
Reason For Exam: SIRS, UTI symptoms
08/23/24 22:16
Urinalysis Reflex To Culture Urgent
Date Specimen was Collected: 08/23/24
Time Specimen was Collected: 22:09
08/23/24 22:25
Comprehensive Metabolic Panel Urgent
08/23/24 23:16
0.9% Sodium Chloride 500 ml [Nss] 500 ml IV BOLUS
08/23/24 23:25
Troponin I Urgent
Blood Culture Q30M
TULIO Source: Blood/Venous
Specimen Description:
08/23/24 23:45
Blood Culture Q30M
TULIO Source: Blood/Venous
Specimen Description:
08/24/24 00:07
CefTRIAXone [Rocephin] 2,000 mg IV NOW STA
08/24/24 00:21
Sterile Water [Sterile Water For Injection] 20 ml .ROUTE .STK-MED
Abnormal Lab Results
08/23/24 08/23/24 08/23/24
21:34 21:49 22:16
WBC 21.9 H 10^3/uL
(4.8-10.8)
MCHC 31.8 L g/dL
(33.0-37.0)
RDW 15.1 H %
(11.5-14.5)
MPV 11.9 H fL
(7.4-10.4)
Abs Immat Gran (auto) 0.2 H 10^3/uL
(0-0.05)
Absolute Neuts (auto) 19.6 H 10^3/uL
(1.4-6.5)
Absolute Lymphs (auto) 0.7 L 10^3/uL
(1.2-3.4)
Absolute Monos (auto) 1.3 H 10^3/uL
(0.1-0.6)
Immature Gran % 0.9 H %
(0-0.5)
Neutrophils % 89.6 H %
(42.2-75.2)
Lymphocytes % 3.2 L %
(20.5-51.1)
Chloride
Carbon Dioxide
BUN
Glucose
Lactic Acid 2.6 H mmol/L
(0.7-2.0)
Urine Glucose 4+ A
(Negative)
POC Glucose 156 H mg/dl
(70-99)
08/23/24
22:25
WBC
MCHC
RDW
MPV
Abs Immat Gran (auto)
Absolute Neuts (auto)
Absolute Lymphs (auto)
Absolute Monos (auto)
Immature Gran %
Neutrophils %
Lymphocytes %
Chloride 111 H mmol/L
(98-107)
Carbon Dioxide 21 L mmol/L
(22-30)
BUN 29 H mg/dl
(9-20)
Glucose 158 H mg/dl
(70-99)
Lactic Acid
Urine Glucose
POC Glucose
08/23/24 21:49
08/23/24 22:25
Vital Signs
Initial and Last Documented VS:
Initial Vital Signs
Temp Pulse Resp BP Pulse Ox
98.8 F 124 22 121/69 98
08/23/24 19:18 08/23/24 19:18 08/23/24 19:18 08/23/24 19:18 08/23/24 19:18
Last Documented Vital Signs
Temp Pulse Resp BP Pulse Ox
98.8 F 95 17 109/55 97
08/23/24 19:18 08/24/24 00:30 08/24/24 00:08 08/24/24 00:08 08/24/24 00:08
MDM/Problems Addressed
Differential Diagnosis Includes:
78yM here with generalized weakness that began this morning. Also c/o R lower leg redness. Admitted in June 2024 for cellulitis. HR 124 in triage. Temp 98.8. BP stable. He appears fatigued but is nontoxic. Mucous membranes are dry. There is
erythema and warmth to the right anterior lower leg without signs of abscess or NSTI. Differential diagnosis includes but is not limited to: Cellulitis, DVT, UTI, DKA, dehydration
Initial ED plan: Check CBC, CMP, lactate, troponin/EKG, UA, and venous duplex. IV fluid bolus.
*Pulse Oximetry
SaO2: 98
Oxygen Mode of Delivery: Room air
Patient hypoxic: no (98%)
*EKG
Interpreted by ED Provider?: Yes
EKG Intrepretation Date: 08/23/24
Heart Rate: 122
Rate: tachycardiac
Rhythm: sinus
[place]: left axis deviation
QRS Pattern: right bundle branch block
Ischemia: no ischemia
*Critical Care Note
Total Time (30-74mins, 75-104mins- exclusive of procedures): Not Applicable
Update Note
Update Note:
White count elevated at 21.9 with a left shift. Lactate 2.6. Creatinine within normal limits. Chest x-ray appears clear per my interpretation. No focal signs of infection on CT abdomen. Mild bilateral perinephric stranding noted although there
is no signs of infection on urinalysis. Only clear source of infection is right leg cellulitis. Blood cultures obtained and IV Rocephin given. Patient admitted for further management.
ED Attending Note
-
Portions of this chart may have been created with voice recognition software.� Occasional wrong word or��sound alike� substitutions may have occurred due to the inherent limitations of voice recognition software.
Discharge Plan
Departure
Patient Disposition: Admit
Date of Disposition: 08/24/24
Time of Disposition: 00:36
Presentation/result/management discussed w/ accepting MD/DO: Hospitalist
Discharge Problem:
Cellulitis of right lower extremity, Sepsis, Generalized weakness
Prescriptions:
No Action
cyanocobalamin (vitamin B-12) 1,000 MCG tablet
1,000 mcg PO DAILY
loratadine 10 MG tablet
10 mg PO DAILY
pantoprazole 40 MG tablet,delayed release (DR/EC)
40 mg PO DAILY
lisinopril 10 MG tablet
10 mg PO DAILY
nitroglycerin 0.4 MG tablet, sublingual
0.4 mg sublingual [id number] PRN (Reason: chest pain)
Patient Comments:
allopurinol 300 MG tablet
300 mg PO DAILY
multivitamin with folic acid [Tab-A-Katie] 1 TABLET tablet
1 tab PO DAILY
glipizide 10 MG tablet
10 mg PO BID
Jardiance 25 MG tablet
12.5 mg PO DAILY
rivaroxaban [Xarelto] 2.5 MG tablet
2.5 mg PO BID Qty: 120 0RF
ascorbic acid (vitamin C) [Vitamin C] 500 mg Tablet
500 mg PO DAILY
aspirin 81 mg Tablet,Chewable
81 mg PO DAILY Qty: 90 0RF
biotin 10,000 mcg Capsule
10,000 mcg PO DAILY
metformin 1,000 mg Tablet
1,000 mg PO BID
gabapentin 100 mg Capsule
100 mg PO DAILYPRN PRN (Reason: mild pain)
aluminum hydrox-magnesium carb 160-105 mg Tablet,Chewable
2 tab PO DAILYPRN PRN (Reason: gerd)
rosuvastatin [Crestor] 40 mg Tablet
40 mg PO HS
Referrals:
Patricia Lowry MD [Family Provider, Family Practice]
Interventions
Interventions:
*Risk Screen - Suicide Last Done: 08/23/24 19:18
*General Assessment Last Done: 08/23/24 19:18
*Neglect/Abuse Screening Last Done: 08/23/24 19:18
*ED- Fall Risk Assessment Last Done: 08/23/24 21:57
*ED COVID-19 Vaccine History Last Done: 08/23/24 19:18
ED- Cardiac Assessment Last Done: 08/23/24 21:57
ED- Neurological Assessment Last Done: 08/23/24 21:57
ED- Pulmonary Assessment Last Done: 08/23/24 21:57
Discharge Date and Time
Print Language: FAROESE
[2024-08-23 21:35] LABS: Glucose - Point of Care 156 mg/dl (70-99)
[2024-08-23 21:53] VITALS: BP 119/67
[2024-08-23 21:56] VITALS: BMI 28.8
[2024-08-23 22:00] VITALS: BP 99/63
[2024-08-23 22:01] LABS: Hematocrit 41.2 % (39.0-52.0); Hemoglobin 13.1 g/dL (13.0-18.0); Mean Corp Hgb Conc. 31.8 g/dL (33.0-37.0); Mean Corpuscular Volume 84.9 fL (80.0-94.0); Nucleated Red Blood Cells % 0 % (-); Platelet Count 220 10^3/uL (130-400); Red Cell Dist. Width 15.1 % (11.5-14.5)
[2024-08-23] MEDS: NSS 500 IV (22:02)
[2024-08-23 23:00] VITALS: BP 135/62
[2024-08-23 23:00] LABS: Urine Character Clear (Clear)
[2024-08-23 23:07] LABS: ALT (SGPT) 22 U/L (0-50); AST (SGOT) 25 U/L (17-59); Albumin 4.2 g/dl (3.5-5.0); Alkaline Phosphatase 75 U/L (38-126); Blood Urea Nitrogen 29 mg/dl (9-20); Calcium 9.6 mg/dl (8.4-10.2); Carbon Dioxide 21 mmol/L (22-30); Chloride 111 mmol/L (98-107); Estimated Creatinine Clearance 67 ml/min; Glucose 158 mg/dl (70-99); Potassium 4.6 mmol/L (3.5-5.1); Sodium 141 mmol/L (135-145); Total Protein 6.9 g/dl (6.3-8.2); eGFR > 60.00
[2024-08-24] VITALS (11 sets, daily range): BP systolic 100–127; BP diastolic 51–62
[2024-08-24] MEDS: NSS 500 IV (00:10)
[2024-08-24 00:11] LABS: Troponin I < 0.012 ng/ml
[2024-08-24] MEDS: ROCEPHIN 2000 MG IV (00:26)
[2024-08-24 03:17] LABS: Magnesium 2.0 mg/dl (1.6-2.3)
--- NOTE | 2024-08-24 03:46 | HPS.HSE ---
Family Physician
-
Family Physician: Patricia Lowry MD
Chief Complaint
-
RLE Redness, weakness
History of Present Illness
Patient is a 78y M with PMH significant for ASCVD, hypertension and DM-II who presents to ED complaining of RLE redness and generalized weakness. Patient was previously hospitalized here in June 2024 for RLE cellulitis. He states that he was
seen by his [employer] today and advised that he had recurrent cellulitis. Rx for abx was sent to his pharmacy; however, patient felt poorly following that appointment and has yet to start the antibiotics. he states that he felt cold / chilled,
extremely weak and 'out of sorts'. He presented to the ED for further evaluation.
Patient has a chronic wound on the plantar surface of the R foot / base of the 1st MTP joint which he states is healing well.
He also has a superficial wound to the R samuel which he states occurred when he banged it on a car door after his [employer] appointment today.
Medical History
Past Medical History
Past Medical History: Reports Other
Additional Past Medical History:
ASCVD (CAD, PAD)
GERD
Hypertension
DM-II
MASLD
Peripheral Neuropathy
Gout
Chronic R foot plantar wound
Past Surgical History: Reports Other
Additional Past Surgical History:
CABG x 3
RLE Bypass
Bilateral GARO
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
Social History
Tobacco: Non-smoker
Personal:
Living: With Family
Family History
Family History: Not pertinent
Allergies / Home Medications
Allergies reflects when Allergies were last updated in [facility].
Home Medications with original date entered in [facility]
Allergy/Medication List:
Allergies
Allergy/AdvReac Type Severity Reaction Status Date / Time
clindamycin Allergy heartburn Verified 07/06/24 10:35
Gadolinium-Containing Allergy Hives Verified 07/06/24 10:35
Contrast Medi
morphine Allergy 'don't Verified 07/06/24 10:35
give it to
me'
arrested
one time
Home Medications
cyanocobalamin (vitamin B-12) 1,000 mcg tablet 1,000 mcg PO DAILY Supplement 07/29/14
loratadine 10 mg tablet 10 mg PO DAILY Allergies 07/29/14
pantoprazole 40 mg tablet,delayed release 40 mg PO DAILY Gastrointestinal issue 12/22/16
allopurinol 300 mg tablet 300 mg PO DAILY Gout 12/18/18
lisinopril 10 mg tablet 10 mg PO DAILY Blood pressure 12/18/18
multivitamin with folic acid 400 mcg tablet (Tab-A-Katie) 1 tab PO DAILY Supplement 12/18/18
nitroglycerin 0.4 mg sublingual tablet 0.4 mg sublingual [id number] PRN chest pain 12/18/18
empagliflozin 25 mg tablet (Jardiance) 12.5 mg PO DAILY Diabetes 09/20/20
glipizide 10 mg tablet 10 mg PO BID Diabetes 09/20/20
rivaroxaban 2.5 mg tablet (Xarelto) 2.5 mg PO BID #120 tabs 12/01/20
ascorbic acid (vitamin C) 500 mg tablet (Vitamin C) 500 mg PO DAILY Supplement 07/31/22
aspirin 81 mg chewable tablet 81 mg PO DAILY #90 tabs 07/31/22
aluminum hydrox-magnesium carb 160 mg-105 mg chewable tablet 2 tab PO DAILYPRN PRN gerd 07/06/24
biotin 10,000 mcg capsule 10,000 mcg PO DAILY Supplement 07/06/24
gabapentin 100 mg capsule 100 mg PO DAILYPRN PRN mild pain 07/06/24
metformin 1,000 mg tablet 1,000 mg PO BID Diabetes 07/06/24
rosuvastatin 40 mg tablet (Crestor) 40 mg PO HS High Cholesterol 07/06/24
Review of Systems
-
History Source: Patient
A 12 point ROS was completed and negative except as noted: Yes
Constitutional: Reports Fatigue and Chills; Denies Fever
EENT: Denies Sore Throat
Respiratory: Denies Cough or Trouble Breathing
Cardiac: Denies Chest Pain or Palpitations
Abdomen/GI: Denies Abdominal Pain, Nausea, Vomiting, Diarrhea, Bloody Stools or Black Stools
: Reports Incontinence; Denies Dysuria, Frequency or Bleeding
Musculoskeletal: Reports Edema; Denies Joint Pain
Skin: Reports Other (Redness of RLE)
Neurological: Reports Weakness; Denies Dizzy or Headache
Psych: Denies Depression or Anxiety
Physical Exam
Vital Signs
Vital Signs
Temp Pulse Resp BP Pulse Ox
98.8 F 88 17 120/56 97
08/23/24 19:18 08/24/24 03:00 08/24/24 00:08 08/24/24 02:00 08/24/24 00:08
Physical Exam
General: Other (78y M in no acute distress.)
HEENT: Moist mucous membranes and PERRLA
Respiratory: Clear; No Wheezes, Rales or Rhonchi
Cardiac: S1/S2, Regular Rhythm and Murmur (II/ ELIZA)
GI: Soft, Non Tender, Non Distended and Normal Bowel Sounds
Musculoskeletal: No Clubbing, No Cyanosis and Other (Trace edema b/l LEs. Erythema and induration of the RLE from the knee through the toes. No fluctuance / abscess / tenderness / etc.)
Skin: Other (Superficial abrasion mid right samuel with mild oozing / clear fluid. Wound at base of 1st MTP / plantar surface without bleeding or discharge.)
Neuro: AO x 3
Laboratory Results
-
08/23/24 21:49
08/23/24 22:25
Laboratory Results
Lactic Acid 2.6 mmol/L (0.7-2.0) H 08/23/24 21:49
Total Bilirubin 0.5 mg/dl (0.2-1.3) 08/23/24 22:25
AST 25 U/L (17-59) 08/23/24 22:25
ALT 22 U/L (0-50) 08/23/24 22:25
Alkaline Phosphatase 75 U/L (38-126) 08/23/24 22:25
Troponin I < 0.012 ng/ml 08/23/24 23:25
Impression/Plan
-
A/P: Patient is a 78y M with PMH significant for ASCVD, HTN and DM-II who presents to ED complaining of RLE redness and generalized weakness / malaise.
RLE Cellulitis
Sepsis secondary to the above
- Admit for further evaluation and treatment.
- Patient presents with tachycardia, tachypnea and leukocytosis with exam findings c/w cellulitis.
- No other source of infection identified.
- IV abx with Ancef for now.
- Wound Care eval for R samuel and R plantar wounds.
- IVFs, antipyretics, supportive care, etc.
- Follow for clinical improvement.
- Follow for any new / focal symptoms.
ASCVD
- History CAD, PAD, etc.
- Had Vascular evaluation during june visit which was unremarkable.
- Continue current CV med regimen including low-dose Eliquis.
Benign Hypertension
- Stable. Continue outpatient med regimen with holding parameters.
DM-II
- Stable. Continue Jardiance.
- Hold glipizide and metformin acutely.
- Follow glucose and cover with SSI as needed.
- Update A1C.
Peripheral neuropathy
- Stable. Continue PRN gabapentin.
History of Gout
- Stable. Continue allopurinol.
DVT Prophylaxis: On Eliquis
Code Status: Full
[2024-08-24] MEDS: NSS 1000 IV (06:18)
[2024-08-24] MEDS: ANCEF 10 IV ×3 (06:24→21:54)
[2024-08-24 07:14] LABS: Hematocrit 35.8 % (39.0-52.0); Hemoglobin 11.5 g/dL (13.0-18.0); Mean Corp Hgb Conc. 32.1 g/dL (33.0-37.0); Mean Corpuscular Volume 86.5 fL (80.0-94.0); Platelet Count 179 10^3/uL (130-400); Red Cell Dist. Width 15.3 % (11.5-14.5)
[2024-08-24 07:51] LABS: Blood Urea Nitrogen 24 mg/dl (9-20); Calcium 9.1 mg/dl (8.4-10.2); Carbon Dioxide 23 mmol/L (22-30); Chloride 110 mmol/L (98-107); Estimated Creatinine Clearance 67 ml/min; Glucose 109 mg/dl (70-99); Potassium 4.5 mmol/L (3.5-5.1); Sodium 140 mmol/L (135-145); eGFR > 60.00
[2024-08-24] MEDS: ZYLOPRIM 300 MG PO (07:54)
[2024-08-24] MEDS: XARELTO 2.5 MG PO ×2 (07:54→19:37)
[2024-08-24] MEDS: FARXIGA 10 MG PO (07:54)
[2024-08-24] MEDS: CLARITIN 10 MG PO (07:55)
[2024-08-24] MEDS: LOW STRENGTH ASPIRIN 81 MG PO (07:55)
[2024-08-24] MEDS: ZESTRIL 10 MG PO (07:55)
[2024-08-24] MEDS: PROTONIX 40 MG PO (07:56)
[2024-08-24] MEDS: VIBRAMYCIN 100 MG PO (09:20)
--- NOTE | 2024-08-24 09:52 | WOUNDNOTE ---
[facility] RN note: Patient admitted with RLE cellulitis and Sepsis.
He is followed by proofer prepress Dr. Avalos from the [place]. He is independent in his wound care.
See H&P for complete history.
PMH: CAD, RLE bypass, HTN, neuropathy, gout, chronic R plantar foot ulcer which is healing as per patient.
Wound Location and type/assessment: Patient last seen 07/07/24 for R plantar 1st MTH diabetic ulcer. Now R plantar foot site with clean shallow pink base, nearly healed. R samuel with skin tear from banging on car door, patient reports. Last arterial
Doppler 07/09/24 R TBI 0.74 decrease from .93, L TBI 0.81. Patient states bringing in honey gel dressing, will apply by self when arrives. Patient turned to side, heels and sacrum intact. L foot intact.
Appetite: good.
Pressure redistribution devices in place: [employer] Accumax. Patient is mobile. He has diabetic sneakers with off loading inserts.
Plan: R foot dressing changed using folded gauze and Medipore tape. Nurse Kalia made aware that patient can do own wound care with Honey gel, 2x2 gauze pads, secure with Medipore tape, when arrives. Patient aware to wear his off loading shoes
during ambulation. R samuel dressing changed. Will confirm orders with Dr. Montilla and updated RN.
Care plan to be updated and will follow as needed. Patient to follow up with his proofer prepress for wound follow up.
--- NOTE | 2024-08-24 10:26 | W.PN.UPDATE ---
Update Note
Progress Note Update
Non-billable addendum
Admitted 4 AM 08/24/24
reports 3rd episode of cellulitis since May, initial episode treated in May, then 2nd episode in June at .
Sent by Podiatry for IV abx
RLE Cellulitis
Sepsis secondary to the above
- Patient presents with tachycardia, tachypnea and leukocytosis with exam findings c/w cellulitis.
- No other source of infection identified.
- continue IV Ancef, oral Doxy
- Wound Care eval for R samuel and R plantar wounds.
- IVFs, antipyretics, supportive care, etc.
- Follow for clinical improvement.
- Follow for any new / focal symptoms.
ASCVD
- History CAD, PAD, etc.
- Had Vascular evaluation during june visit which was unremarkable.
- Continue current CV med regimen including low-dose Eliquis.
Benign Hypertension
- Stable. continue outpatient med regimen with holding parameters.
DM-II
- Stable. continue Jardiance.
- Hold glipizide and metformin acutely.
- Follow glucose and cover with SSI as needed.
- Update A1C.
Peripheral neuropathy
- Stable. continue PRN gabapentin.
History of Gout
- Stable. continue allopurinol.
DVT Prophylaxis: Eliquis
Code: Full
--- NOTE | 2024-08-24 12:12 | CON.ID ---
Consultation
-
Date/Time Consultation Requested: August 24, 2024 1025
Date/Time Consultation Performed: August 24, 2024 1215
Requesting Provider: Dr. Patricia Montilla
Performing Provider: Dr. Heather Anthony
Reason for Consultation: Recurrent cellulitis
Chief Complaint / Past History
Chief Complaint
Right leg redness
History of Present Illness
78-year-old male with history of diabetes mellitus, CAD, PAD with history of right lower extremity bypass who presented to the hospital August 23 due to acute onset of right leg redness. Patient reports he developed right lower extremity cellulitis
in April when he was down in [place]; he was treated with IV antibiotic and sent home on an oral antibiotic for which he could not remember. He was then hospitalized here at [facility] from 07/06 -July 10 again with right leg cellulitis.
Arterial duplex showed patent bypass. He received IV cefazolin plus doxycycline in the hospital then discharged on oral cephalexin plus doxycycline for another 10 days. Patient reports the erythema resolved. The right leg remained edematous.
Yesterday, he noted right leg redness that started from the ankle. He saw his retail wireless associate who sent him prescription for an antibiotic. However patient felt poorly with chills and weakness. He therefore decided to come to the ER. Of note yesterday
he accidentally banged his right samuel on the car door after the cellulitis already present. In the ER his white count was 21.9, afebrile. Venous duplex no DVT. He received ceftriaxone in the ER then changed to IV cefazolin plus doxycycline.
Patient denies fevers. He has a chronic right plantar foot wound which have been getting smaller. He moisturizes his legs every day. He does not use compression modality due to history of lower extremity bypass.
Past History
Additional Past Medical History:
Diabetes mellitus type 2
Peripheral neuropathy
Hypertension
Gout
CAD status post CABG x 3
Chronic right plantar foot wound
PAD status post right lower extremity bypass
Bilateral total hip replacements
Right fifth metatarsal head amputation
Allergy History:
clindamycin Allergy (Verified 07/06/24 10:35)
heartburn
Gadolinium-Containing Contrast Medi Allergy (Verified 07/06/24 10:35)
Hives
morphine Allergy (Verified 07/06/24 10:35)
'don't give it to me' arrested one time
Medications Reviewed: Yes
Current Antibiotics:
Cefazolin
Doxycycline
Social History
Tobacco: Non-Smoker
Alcohol: None
Drug: None
Personal:
Family History
Family History: Not Pertinent
Review of Systems
Review of Systems
General: Chills and Change in Appetite; Negative Fever
HEENT: Negative Sinus Problems or Headache
Cardiovascular: Negative Chest Pain or Dyspnea
Respiratory: Negative Dyspnea or Cough
Gasteroenterology: Negative Nausea, Vomiting or Diarrhea
Genital / Urological: Negative Dysuria or Flank Pain
Endocrine: Weakness
All systems: All other systems were reviewed and were negative
Vital Signs
Temp Pulse Resp BP Pulse Ox
98.3 F 80 20 101/51 98
08/24/24 11:14 08/24/24 11:14 08/24/24 11:14 08/24/24 11:14 08/24/24 11:14
Physical Exam
Physical Exam
Constitutional: No Acute Distress and Comfortable
Eyes: No Conjunctival Hemorrhage and Sclera Anicteric
Cardiovascular: Regular Rate and S1/S2
Pulmonary: Clear
Gastrointestinal: Soft, Non Tender, Non Distended and Normal Bowel Sounds
Genito-Urinary: Negative CVA Tenderness
Extremities: Edema (RLE 1+) and Erythema (RLE from ankle up to below knee, + warmth)
Wound: Other (Right LE: abrasion wound dry. Right plantar first met head wound with granulating tissue, dry, no surrounding erythema)
Neurological: AO x 3
Lab / Diagnostic Study Results
08/24/24 06:45
08/24/24 06:45
Abs Immat Gran (auto) 0.2 10^3/uL (0-0.05) H 08/23/24 21:49
Absolute Neuts (auto) 19.6 10^3/uL (1.4-6.5) H 08/23/24 21:49
Absolute Lymphs (auto) 0.7 10^3/uL (1.2-3.4) L 08/23/24 21:49
Absolute Monos (auto) 1.3 10^3/uL (0.1-0.6) H 08/23/24 21:49
Absolute Basos (auto) 0.1 10^3/uL (0-0.2) 08/23/24 21:49
Immature Gran % 0.9 % (0-0.5) H 08/23/24 21:49
Neutrophils % 89.6 % (42.2-75.2) H 08/23/24 21:49
Lymphocytes % 3.2 % (20.5-51.1) L 08/23/24 21:49
Monocytes % 5.9 % (1.7-9.3) 08/23/24 21:49
Eosinophils % 0.0 % (0-6) 08/23/24 21:49
Basophils % 0.4 % (0-2) 08/23/24 21:49
Lactic Acid 1.1 mmol/L (0.7-2.0) 08/24/24 06:45
Microbiology Results
Micro:
08/23/24 23:45 Blood Culture - Pending
Blood/Venous
08/23/24 23:25 Blood Culture - Pending
Blood/Venous
08/23/24 CT a/p: Mild fecal retention within the rectum, suggestive of constipation. No evidence of intestinal obstruction or bowel inflammatory process.
08/23/24 CXR: No acute disease of the chest
08/23/24 Venous duplex: No sonographic evidence for RIGHT lower extremity deep venous thrombosis.
Assessment / Plan
# Recurrent RLE cellulitis
# Leukocytosis
- Elevate LE
- Hx RLE PAD may be prohibitive for compression modality
- Continue cefazolin.
- DC doxycycline.
- Will consider future PCN-VK suppressive therapy.
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
Diabetes mellitus type 2
Peripheral neuropathy
Hypertension
Gout
CAD status post CABG x 3
Chronic right plantar foot wound
PAD status post right lower extremity bypass
Bilateral total hip replacements
Right fifth metatarsal head amputation
[2024-08-24 12:17] LABS: Glycohemoglobin (HgbA1c) 7.4 % (4.0-5.6)
[2024-08-24 12:38] LABS: Glucose - Point of Care 109 mg/dl (70-99)
[2024-08-24 16:25] LABS: Glucose - Point of Care 161 mg/dl (70-99)
[2024-08-24 21:21] LABS: Glucose - Point of Care 220 mg/dl (70-99)
[2024-08-24] MEDS: CRESTOR 40 MG PO (21:54)
[2024-08-25] VITALS (7 sets, daily range): BP systolic 101–139; BP diastolic 57–77; PULSE 78; O2SAT 100; BMI 27.7
[2024-08-25] MEDS: ANCEF 10 IV ×3 (05:45→21:44)
[2024-08-25] MEDS: XARELTO 2.5 MG PO ×2 (07:42→20:06)
[2024-08-25] MEDS: LOW STRENGTH ASPIRIN 81 MG PO (07:42)
[2024-08-25] MEDS: ZYLOPRIM 300 MG PO (07:42)
[2024-08-25] MEDS: CLARITIN 10 MG PO (07:43)
[2024-08-25] MEDS: ZESTRIL 10 MG PO (07:43)
[2024-08-25] MEDS: PROTONIX 40 MG PO (07:43)
[2024-08-25] MEDS: FARXIGA 10 MG PO (07:43)
[2024-08-25 07:44] LABS: Hematocrit 40.1 % (39.0-52.0); Hemoglobin 12.7 g/dL (13.0-18.0); Mean Corp Hgb Conc. 31.7 g/dL (33.0-37.0); Mean Corpuscular Volume 87.2 fL (80.0-94.0); Platelet Count 198 10^3/uL (130-400); Red Cell Dist. Width 15.4 % (11.5-14.5)
[2024-08-25 07:51] LABS: Glucose - Point of Care 128 mg/dl (70-99)
[2024-08-25 08:21] LABS: Blood Urea Nitrogen 21 mg/dl (9-20); Calcium 9.6 mg/dl (8.4-10.2); Carbon Dioxide 25 mmol/L (22-30); Chloride 110 mmol/L (98-107); Estimated Creatinine Clearance 84 ml/min; Glucose 134 mg/dl (70-99); Potassium 4.6 mmol/L (3.5-5.1); Sodium 140 mmol/L (135-145); eGFR > 60.00
[2024-08-25] MEDS: SENOKOT-S 1 TABLET PO ×2 (09:32→20:05)
--- NOTE | 2024-08-25 10:02 | W.PN.HOSP.TC ---
Today's Communication/Plan
-
continue IV Ancef; follow ID recs
continue RLE elevation as much as possible
Assessment / Plan
Assessment / Plan
Assessment:
RLE Cellulitis
Sepsis secondary to the above
- Patient presents with tachycardia, tachypnea and leukocytosis with exam findings c/w cellulitis.
- No other source of infection identified.
- continue IV Ancef, day 2
- ID following; patient may be considered for suppressive antibiotic; PCN-VK
- Wound Care eval for R samuel and R plantar wounds.
- IVFs, antipyretics, supportive care, etc.
- Follow for clinical improvement.
- Follow for any new/focal symptoms.
ASCVD
- History CAD, PAD, etc.
- Had Vascular evaluation during june visit which was unremarkable. continue with scheduled OP Visit.
- Continue current CV med regimen including low-dose Eliquis.
Benign Hypertension
- Stable. continue outpatient med regimen with holding parameters.
DM-II
- Stable. continue Jardiance/metformin
- Hold glipizide acutely.
- Follow glucose and cover with SSI as needed.
- A1C 7.4%
Peripheral neuropathy
- Stable. continue PRN gabapentin.
History of Gout
- Stable. continue allopurinol.
DVT Prophylaxis: Eliquis
Code: Full
Anticipated Discharge: 24 - 48 hours
Subjective/Interval History
-
Date of Service: August 25, 2024
redness slowly improving on proximal aspects of demarcated line, swelling improving
patient complying with LE elevation as much as he can
denies fevers or pain
Objective Data
-
Labs:
Laboratory Results
08/25/24 08/25/24
07:08 07:09
WBC 9.1
Hgb 12.7 L
Hct 40.1
Plt Count 198
Sodium 140
Potassium 4.6
Chloride 110 H
Carbon Dioxide 25
BUN 21 H
Creatinine 0.8
Glucose 134 H
Calcium 9.6
Vital Signs:
Vital Signs
Temp Pulse Resp BP Pulse Ox
97.5 F 82 20 119/64 99
08/25/24 07:37 08/25/24 07:37 08/25/24 07:37 08/25/24 07:37 08/25/24 07:37
I&O
08/24/24 08/25/24 08/26/24
06:59 06:59 06:59
Intake Total 720 / 720
Balance 720 / 720
Physical Exam
-
General: No Apparent Distress
HEENT: Normocephalic and Atraumatic
Cardiac: Regular Rhythm and S1/S2
GI: Soft and Nontender
Skin: Other (RLE erythema/edema/warmth. Right LE: abrasion wound dry. Right plantar first met head wound with granulating tissue, dry, no surrounding erythema)
Neuro: AO x 3
Psych: Calm
Data Reviewed
-
Total Time Spent with Patient (in minutes): 45
Labs: Labs Reviewed by me
--- NOTE | 2024-08-25 10:52 | CM ---
preconstruction manager reviewed patient's chart and met with patient and reached out to patient's spouse to confirm home set up, patient lives with his spouse in a split level home with 2 steps to enter, is independent with adl's and ambulation, patient
drives. Home with spouse when stable, will await PT/OT evaluations.
PCP: Patricia Lowry
Pharmacy: [facility] [place]
[2024-08-25 11:32] LABS: Glucose - Point of Care 138 mg/dl (70-99)
[2024-08-25] MEDS: GLUCOPHAGE 1000 MG PO ×2 (11:40→20:06)
--- NOTE | 2024-08-25 12:21 | W.PN.ID1 ---
Date of Service
Date of Service: August 25, 2024
Today's Communication
Continue cefazolin.
Assessment / Plan
# Recurrent RLE cellulitis, improving
# Leukocytosis resolved
- Elevate LE
- Hx RLE PAD may be prohibitive for compression modality
- Continue cefazolin.
- Tomorrow can transition to cephalexin 1000mg po q8h through 09/01, followed by suppression with PCN-VK 500mg po bid x 6 months.
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
Diabetes mellitus type 2
Peripheral neuropathy
Hypertension
Gout
CAD status post CABG x 3
Chronic right plantar foot wound
PAD status post right lower extremity bypass
Bilateral total hip replacements
Right fifth metatarsal head amputation
Chief Complaint
-: Cellulitis
Subjective / Review of Systems
Leg has improved.
Vital Signs / Physical Exam
Vital Signs
Vital Signs
Temp Pulse Resp BP Pulse Ox
97.7 F 83 20 120/66 99
08/25/24 11:17 08/25/24 11:17 08/25/24 11:17 08/25/24 11:17 08/25/24 11:17
Physical Exam
Constitutional: No Acute Distress
Pulmonary: Clear
Gastrointestinal: Soft, Non Tender, Non Distended and Normal Bowel Sounds
Extremities: Edema (RLE) and Erythema (RLE decreased)
Neurological: AO x 3
Objective Data
Lab Data
Lab Results
08/25/24 07:09
08/25/24 07:08
Estimated Creat Clear 84 ml/min 08/25/24 07:08
Lactic Acid 1.1 mmol/L (0.7-2.0) 08/24/24 06:45
Total Bilirubin 0.5 mg/dl (0.2-1.3) 08/23/24 22:25
AST 25 U/L (17-59) 08/23/24 22:25
ALT 22 U/L (0-50) 08/23/24 22:25
Alkaline Phosphatase 75 U/L (38-126) 08/23/24 22:25
Most recent labs reviewed.
Micro Results:
08/23/24 23:45 Blood Culture - Preliminary
Blood/Venous No Growth in 24 hours- Final report to follow
08/23/24 23:25 Blood Culture - Preliminary
Blood/Venous No Growth in 24 hours- Final report to follow
08/23/24 CT a/p: Mild fecal retention within the rectum, suggestive of constipation. No evidence of intestinal obstruction or bowel inflammatory process.
08/23/24 CXR: No acute disease of the chest
08/23/24 Venous duplex: No sonographic evidence for RIGHT lower extremity deep venous thrombosis.
[2024-08-25 16:39] LABS: Glucose - Point of Care 142 mg/dl (70-99)
[2024-08-25] MEDS: CRESTOR 40 MG PO (21:44)
[2024-08-25 21:52] LABS: Glucose - Point of Care 215 mg/dl (70-99)
[2024-08-26 03:38] VITALS: BP 128/72
[2024-08-26] MEDS: ANCEF 10 IV ×2 (05:04→13:18)
[2024-08-26 06:00] VITALS: BMI 27.6
[2024-08-26 07:29] VITALS: BP 123/71
[2024-08-26 07:33] LABS: Glucose - Point of Care 118 mg/dl (70-99)
[2024-08-26] MEDS: ZYLOPRIM 300 MG PO (07:51)
[2024-08-26] MEDS: SENOKOT-S 1 TABLET PO (07:51)
[2024-08-26] MEDS: ZESTRIL 10 MG PO (07:51)
[2024-08-26] MEDS: CLARITIN 10 MG PO (07:52)
[2024-08-26] MEDS: XARELTO 2.5 MG PO (07:52)
[2024-08-26] MEDS: PROTONIX 40 MG PO (07:52)
[2024-08-26] MEDS: FARXIGA 10 MG PO (07:52)
[2024-08-26] MEDS: GLUCOPHAGE 1000 MG PO (07:53)
[2024-08-26] MEDS: LOW STRENGTH ASPIRIN 81 MG PO (07:53)
[2024-08-26 08:01] LABS: Hematocrit 39.1 % (39.0-52.0); Hemoglobin 12.8 g/dL (13.0-18.0); Mean Corp Hgb Conc. 32.7 g/dL (33.0-37.0); Mean Corpuscular Volume 85.0 fL (80.0-94.0); Platelet Count 207 10^3/uL (130-400); Red Cell Dist. Width 15.1 % (11.5-14.5)
[2024-08-26 08:29] LABS: Blood Urea Nitrogen 22 mg/dl (9-20); Calcium 9.9 mg/dl (8.4-10.2); Carbon Dioxide 23 mmol/L (22-30); Chloride 112 mmol/L (98-107); Estimated Creatinine Clearance 95 ml/min; Glucose 126 mg/dl (70-99); Potassium 4.8 mmol/L (3.5-5.1); Sodium 140 mmol/L (135-145); eGFR > 60.00
--- NOTE | 2024-08-26 10:29 | W.PN.HOSP.TC ---
Today's Communication/Plan
-
dc to home
Assessment / Plan
Assessment / Plan
Assessment:
RLE Cellulitis
Sepsis secondary to the above
- Patient presents with tachycardia, tachypnea and leukocytosis with exam findings c/w cellulitis.
- No other source of infection identified.
- continue IV Ancef, day 3 per ID
- at discharge. transition to cephalexin 1000mg po q8h through 09/01, followed by suppression with PCN-VK 500mg po bid x 6 months.
- Wound Care eval for R samuel and R plantar wounds.
ASCVD
- History CAD, PAD, etc.
- Had Vascular evaluation during june visit which was unremarkable. continue with scheduled OP Visit.
- Continue current CV med regimen including low-dose Eliquis.
Benign Hypertension
- Stable. continue outpatient med regimen with holding parameters.
DM-II
- Stable. continue Jardiance/metformin
- Hold glipizide acutely.
- Follow glucose and cover with SSI as needed.
- A1C 7.4%
Peripheral neuropathy
- Stable. continue PRN gabapentin.
History of Gout
- Stable. continue allopurinol.
DVT Prophylaxis: Eliquis
Code: Full
More than 30 minutes spent in discharge including
Final examination of the patient
Summarizing hospital stay
Instructions for continuing care to all relevant caregivers
Preparation of discharge records, prescriptions, and referral forms
Total time spent (in minutes): 41
Anticipated Discharge: Today
Subjective/Interval History
-
Date of Service: August 26, 2024
resting comfortably, no complaints at present
Objective Data
-
Labs:
Laboratory Results
08/26/24
07:44
WBC 7.8
Hgb 12.8 L
Hct 39.1
Plt Count 207
Sodium 140
Potassium 4.8
Chloride 112 H
Carbon Dioxide 23
BUN 22 H
Creatinine 0.7
Glucose 126 H
Calcium 9.9
Vital Signs:
Vital Signs
Temp Pulse Resp BP Pulse Ox
97.5 F 78 18 123/71 98
08/26/24 07:29 08/26/24 07:29 08/26/24 07:29 08/26/24 07:29 08/26/24 08:00
I&O
08/25/24 08/26/24 08/27/24
06:59 06:59 06:59
Intake Total 720 / 720
Balance 720 / 720
Physical Exam
-
General: No Apparent Distress
HEENT: Normocephalic and Atraumatic
Respiratory: Negative Wheezes
Cardiac: Regular Rhythm and S1/S2
GI: Soft
Skin: Other (RLE erythema/edema/warmth. improving)
Neuro: AO x 3
Psych: Calm
Data Reviewed
-
Total Time Spent with Patient (in minutes): 41
Labs: Labs Reviewed by me
--- NOTE | 2024-08-26 10:34 | W.PN.ID1 ---
Date of Service
Date of Service: August 26, 2024
Today's Communication
Can transition to cephalexin 1000mg po q8h through 09/01, followed by suppression with PCN-VK 500mg po bid x 6 months.
Assessment / Plan
# Recurrent RLE cellulitis, improving
# Leukocytosis resolved
- Elevate LE
- Hx RLE PAD may be prohibitive for compression modality
- Can transition to cephalexin 1000mg po q8h through 09/01, followed by suppression with PCN-VK 500mg po bid x 6 months.
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
Diabetes mellitus type 2
Peripheral neuropathy
Hypertension
Gout
CAD status post CABG x 3
Chronic right plantar foot wound
PAD status post right lower extremity bypass
Bilateral total hip replacements
Right fifth metatarsal head amputation
Chief Complaint
-: Cellulitis
Subjective / Review of Systems
Feels well.
Vital Signs / Physical Exam
Vital Signs
Vital Signs
Temp Pulse Resp BP Pulse Ox
97.5 F 78 18 123/71 98
08/26/24 07:29 08/26/24 07:29 08/26/24 07:29 08/26/24 07:29 08/26/24 08:00
Physical Exam
Constitutional: No Acute Distress
Pulmonary: Clear
Gastrointestinal: Soft, Non Tender, Non Distended and Normal Bowel Sounds
Extremities: Edema (RLE decreased) and Erythema (RLE decreased, erythema localized to proximal bypass site)
Neurological: AO x 3
Objective Data
Lab Data
Lab Results
08/26/24 07:44
08/26/24 07:44
Estimated Creat Clear 95 ml/min 08/26/24 07:44
Lactic Acid 1.1 mmol/L (0.7-2.0) 08/24/24 06:45
Total Bilirubin 0.5 mg/dl (0.2-1.3) 08/23/24 22:25
AST 25 U/L (17-59) 08/23/24 22:25
ALT 22 U/L (0-50) 08/23/24 22:25
Alkaline Phosphatase 75 U/L (38-126) 08/23/24 22:25
Most recent labs reviewed.
Micro Results:
08/23/24 23:45 Blood Culture - Preliminary
Blood/Venous No Growth in 48 hours- Final report to follow
08/23/24 23:25 Blood Culture - Preliminary
Blood/Venous No Growth in 48 hours- Final report to follow
08/23/24 CT a/p: Mild fecal retention within the rectum, suggestive of constipation. No evidence of intestinal obstruction or bowel inflammatory process.
08/23/24 CXR: No acute disease of the chest
08/23/24 Venous duplex: No sonographic evidence for RIGHT lower extremity deep venous thrombosis.
--- NOTE | 2024-08-26 10:35 | W.DS.TRANS ---
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
-
Discharge Instructions:
Discharge Diagnosis/Procedures RLE cellulitis
Diet Diabetic, Carb Controlled
Activity As tolerated
Instructions:
Stand-Alone Forms:
Changes to Home Medications: No
Discharge Medications:
DC Medications w/original date entered in [employer]
cyanocobalamin (vitamin B-12) 1,000 mcg tablet 1,000 mcg PO DAILY Supplement 07/29/14
loratadine 10 mg tablet 10 mg PO DAILY Allergies 07/29/14
pantoprazole 40 mg tablet,delayed release 40 mg PO DAILY Gastrointestinal issue 12/22/16
allopurinol 300 mg tablet 300 mg PO DAILY Gout 12/18/18
lisinopril 10 mg tablet 10 mg PO DAILY Blood pressure 12/18/18
multivitamin with folic acid 400 mcg tablet (Tab-A-Katie) 1 tab PO DAILY Supplement 12/18/18
nitroglycerin 0.4 mg sublingual tablet 0.4 mg sublingual [id number] PRN chest pain 12/18/18
empagliflozin 25 mg tablet (Jardiance) 12.5 mg PO DAILY Diabetes 09/20/20
glipizide 10 mg tablet 10 mg PO BID Diabetes 09/20/20
rivaroxaban 2.5 mg tablet (Xarelto) 2.5 mg PO BID #120 tabs 12/01/20
ascorbic acid (vitamin C) 500 mg tablet (Vitamin C) 500 mg PO DAILY Supplement 07/31/22
aspirin 81 mg chewable tablet 81 mg PO DAILY #90 tabs 07/31/22
aluminum hydrox-magnesium carb 160 mg-105 mg chewable tablet 2 tab PO DAILYPRN PRN gerd 07/06/24
biotin 10,000 mcg capsule 10,000 mcg PO DAILY Supplement 07/06/24
gabapentin 100 mg capsule 100 mg PO DAILYPRN PRN mild pain 07/06/24
metformin 1,000 mg tablet 1,000 mg PO BID Diabetes 07/06/24
rosuvastatin 40 mg tablet (Crestor) 40 mg PO HS High Cholesterol 07/06/24
cephalexin 500 mg capsule 1,000 mg (2 x 500 mg) PO Q8H #21 caps 08/26/24
penicillin V potassium 500 mg tablet 500 mg PO BID #60 tabs 08/26/24
Home Medication Changes
Pending Results: No
Total time spent discharging patient (in min): 41
[2024-08-26 11:20] VITALS: BP 111/69
[2024-08-26 11:45] VITALS: BP 111/69
[2024-08-26 11:49] LABS: Glucose - Point of Care 153 mg/dl (70-99)
--- NOTE | 2024-08-26 12:03 | CM ---
Chart reviewed and plan is to home no needs. IMM completed.
Plan; Home no needs.
== END 2024-08-26 15:04 | disposition home or self-care (01) | DRG 872 ==
LOC: 4 WEST ACU 03:58
PROVIDERS: Physician Assistant; ADMITTING PHYSICIAN Hospitalist; ATTENDING PHYSICIAN Internal Medicine; CONSULT PHYSICIAN Internal Medicine Infectious Disease; EMERGENCY PHYSICIAN Emergency Medicine; FAMILY PHYSICIAN Family Medicine
DX: A41.9 Sepsis, unspecified organism (principal); L03.115 Cellulitis of right lower limb; I25.10 Atherosclerotic heart disease of native coronary artery without angina pectoris; I10 Essential (primary) hypertension; E11.40 Type 2 diabetes mellitus with diabetic neuropathy, unspecified; E11.51 Type 2 diabetes mellitus with diabetic peripheral angiopathy without gangrene; M10.9 Gout, unspecified; D72.829 Elevated white blood cell count, unspecified; Z96.643 Presence of artificial hip joint, bilateral; Z95.1 Presence of aortocoronary bypass graft; Z79.899 Other long term (current) drug therapy; Z89.421 Acquired absence of other right toe(s)
CPT/HCPCS: 71046; 74176; 80048; 80053; 81003; 82962; 83036; 83605; 83735; 84484; 85025; 85027; 87040; 93005; 93971; 96360; 97162; 99285

== ENCOUNTER 2024-10-14 06:17 | Day surgery (SDC) | payer OTHER, SELFPAY ==
[2024-10-14 08:20] LABS: Glucose - Point of Care 137 mg/dl (70-99)
== END 2024-10-14 10:09 | disposition home or self-care (01) ==
LOC: GI 06:17
PROVIDERS: ATTENDING PHYSICIAN Specialist; FAMILY PHYSICIAN Family Medicine
DX: D50.9 Iron deficiency anemia, unspecified (principal); Z12.11 Encounter for screening for malignant neoplasm of colon; Z86.0101 Personal history of adenomatous and serrated colon polyps; K57.30 Diverticulosis of large intestine without perforation or abscess without bleeding; Q39.6 Congenital diverticulum of esophagus; K31.89 Other diseases of stomach and duodenum; D12.0 Benign neoplasm of cecum; D12.3 Benign neoplasm of transverse colon; D12.2 Benign neoplasm of ascending colon; D12.4 Benign neoplasm of descending colon; D12.5 Benign neoplasm of sigmoid colon
CPT/HCPCS: 45385; 45380; 43239; 82962; 88305; 88342

== ENCOUNTER 2024-10-29 13:30 | Outpatient (RCR) | payer OTHER, SELFPAY ==
[2024-10-15 13:47] VITALS: BP 136/65
[2024-10-15] MEDS: VENOFER 110 MG IV (14:12)
[2024-10-18 10:23] VITALS: BP 125/70
[2024-10-18] MEDS: VENOFER 110 MG IV (10:46)
[2024-10-18 12:09] VITALS: BP 132/70
[2024-10-22 13:57] VITALS: BP 128/53
[2024-10-22] MEDS: VENOFER 110 MG IV (14:20)
[2024-10-22 15:46] VITALS: BP 126/70
[2024-10-25] MEDS: VENOFER 110 MG IV (13:58)
[2024-10-25 14:03] VITALS: BP 136/73
[2024-10-29] MEDS: VENOFER 110 MG IV (14:02)
[2024-10-29 14:07] VITALS: BP 125/68
[2024-10-29 15:03] VITALS: BP 129/71
== END 2024-11-09 23:59 | disposition home or self-care (01) ==
LOC: OID 13:30
PROVIDERS: ATTENDING PHYSICIAN Family Medicine
DX: D50.9 Iron deficiency anemia, unspecified (principal); R79.9 Abnormal finding of blood chemistry, unspecified; D69.2 Other nonthrombocytopenic purpura; I73.9 Peripheral vascular disease, unspecified
CPT/HCPCS: 96365; J1756

== ENCOUNTER 2024-12-25 23:03 | Observation (INO) | payer OTHER, SELFPAY ==
[2024-12-25 19:54] VITALS: BMI 28.2
[2024-12-25 19:56] VITALS: BP 147/78
[2024-12-25 20:24] VITALS: BP 126/73
--- NOTE | 2024-12-25 20:27 | ED.GENMED ---
History of Present Illness
<JAMIE Gilliam - Last Filed: 12/25/24 22:25>
General
Chief Complaint: Skin Problem
Source: patient and spouse
Exam Limitations: none
Time Seen by Provider: 12/25/24 20:22
Nursing documentation reviewed up to this point in time: agreed with
History of Present Illness
History of Present Illness:
Patient is a 79-year-old male with history of chronic cellulitis on maintenance penicillin(recommended by ID) presents to the ER for redness to his right lower leg since . He resides partially in [place] as well as here and was also started
on Keflex and has taken for 3 d but has worsening of symptoms. He denies any fever or chills. He does not feel ill. In addition patient has history of CAD and peripheral arterial disease on aspirin Xarelto and statin, hypertension diabetes
peripheral neuropathy and gout
Past History
<JAMIE Gilliam - Last Filed: 12/25/24 22:25>
Past History
ED Past Medical History: CAD, GERD, HTN, Hypercholesterolemia, NIDDM, Other (neuropathy) and Other (gout)
ED Past Surgical History: Cardiac and Orthopedic
Social History
Tobacco: Former smoker
Alcohol: Occasional
Drug: None
Personal:
Living: with family
Employment: Retired
Family History
Family History: Other
Phy Exam
<JAMIE Gilliam - Last Filed: 12/25/24 22:25>
General Physical Exam
General Presentation: no apparent distress
General age: appears stated age
General Skin: warm and dry
General Habitus: elderly
General Mental: alert
General Hydration: appears well hydrated
Neurological Exam
Neurological Exam: alert and oriented x3
Musculoskeletal Exam
Musculoskeletal Exam: other (rle with strong pulses + erythema to lower leg circumferential ; + ulcer to plantar aspect of foot )
Skin Exam
Skin Exam: normal color and warm/dry
Psychiatric Exam
Psychiatric Exam: normal mood/affect
Course
<JAMIE Gilliam - Last Filed: 12/25/24 22:25>
Orders/Labs/Results
Orders:
Orders
12/25/24 20:42
IV Insert/Care/Rem.- Treatment PRN
12/25/24 21:00
Blood Culture Q30M
TULIO Source: Blood/Venous
Specimen Description:
12/25/24 21:43
Complete Blood Count/With Diff Urgent
Comprehensive Metabolic Panel Urgent
Blood Culture Q30M
TULIO Source: Blood/Venous
Specimen Description:
12/25/24 21:44
Vancomycin [Vancocin] 2,000 mg 0.9% Sodium Chloride 500 ml [Nss] 500 ml IV NOW
Abnormal Lab Results
12/25/24
21:43
MCHC 32.7 L g/dL
(33.0-37.0)
RDW 17.2 H %
(11.5-14.5)
MPV 11.2 H fL
(7.4-10.4)
Absolute Monos (auto) 0.8 H 10^3/uL
(0.1-0.6)
Monocytes % 9.4 H %
(1.7-9.3)
Eosinophils % 6.9 H %
(0-6)
BUN 22 H mg/dl
(9-20)
Glucose 116 H mg/dl
(70-99)
Calcium 10.3 H mg/dl
(8.4-10.2)
12/25/24 21:43
12/25/24 21:43
Vital Signs
Initial and Last Documented VS:
Initial Vital Signs
Temp Pulse Resp BP Pulse Ox
97.5 F 81 16 147/78 98
12/25/24 19:56 12/25/24 19:56 12/25/24 19:56 12/25/24 19:56 12/25/24 19:56
Last Documented Vital Signs
Temp Pulse Resp BP Pulse Ox
97.5 F 81 16 126/73 98
12/25/24 20:00 12/25/24 19:56 12/25/24 19:56 12/25/24 20:24 12/25/24 20:30
Database Design Analyst consulted with Physician
Database Design Analyst consulted with physician?: Yes
Name of Physician Consulted: Shirley
<Mango Watson, DO - Last Filed: 12/25/24 22:15>
Orders/Labs/Results
Orders:
Orders
12/25/24 20:42
IV Insert/Care/Rem.- Treatment PRN
12/25/24 21:00
Blood Culture Q30M
TULIO Source: Blood/Venous
Specimen Description:
12/25/24 21:43
Complete Blood Count/With Diff Urgent
Comprehensive Metabolic Panel Urgent
Blood Culture Q30M
TULIO Source: Blood/Venous
Specimen Description:
12/25/24 21:44
Vancomycin [Vancocin] 2,000 mg 0.9% Sodium Chloride 500 ml [Nss] 500 ml IV NOW
Abnormal Lab Results
12/25/24
21:43
MCHC 32.7 L g/dL
(33.0-37.0)
RDW 17.2 H %
(11.5-14.5)
MPV 11.2 H fL
(7.4-10.4)
Absolute Monos (auto) 0.8 H 10^3/uL
(0.1-0.6)
Monocytes % 9.4 H %
(1.7-9.3)
Eosinophils % 6.9 H %
(0-6)
BUN 22 H mg/dl
(9-20)
Glucose 116 H mg/dl
(70-99)
Calcium 10.3 H mg/dl
(8.4-10.2)
12/25/24 21:43
12/25/24 21:43
Vital Signs
Initial and Last Documented VS:
Initial Vital Signs
Temp Pulse Resp BP Pulse Ox
97.5 F 81 16 147/78 98
12/25/24 19:56 12/25/24 19:56 12/25/24 19:56 12/25/24 19:56 12/25/24 19:56
Last Documented Vital Signs
Temp Pulse Resp BP Pulse Ox
97.5 F 81 16 126/73 98
12/25/24 20:00 12/25/24 19:56 12/25/24 19:56 12/25/24 20:24 12/25/24 20:30
<JAMIE Gilliam - Last Filed: 12/25/24 22:25>
MDM/Problems Addressed
MDM/Problems Addressed:
Patient is a 79-year-old male history of diabetes history of chronic cellulitis on maintenance penicillin recommended by ROSALEE Arenas presents to the ER with failed outpatient treatment. Patient started with redness to right lower leg on
3 days ago also started Keflex at that time however symptoms are worse. He denies any fever she is afebrile with a normal white count however with worsening symptoms despite 2 antibiotics would recommend admission. IV vancomycin ordered.
Patient in addition does have a small wound to the plantar aspect of the right foot this was debrided by his construction materials tester several days ago as well.
<JAMIE Gilliam - Last Filed: 12/25/24 22:25>
*Pulse Oximetry
SaO2: 98
Oxygen Mode of Delivery: Room air
Patient hypoxic: no
*Critical Care Note
Total Time (30-74mins, 75-104mins- exclusive of procedures): Not Applicable
ED Attending Note
<JAMIE Gilliam - Last Filed: 12/25/24 22:25>
-
Portions of this chart may have been created with voice recognition software.� Occasional wrong word or��sound alike� substitutions may have occurred due to the inherent limitations of voice recognition software.
<Mango Watson DO - Last Filed: 12/25/24 22:15>
ED Attending Note
Patient seen and examined by attending physician: Yes
ED Attending Note:
I have reviewed and agree with history treatment plan by JAMIE Sanchez. My exam revealed 79-year-old male, afebrile no acute distress with right lower leg cellulitis. He is failing outpatient treatment and is worsening. Vancomycin
ordered. Admit to hospitalist.
Discharge Plan
Departure
Patient Disposition: Admit
Date of Disposition: 12/25/24
Time of Disposition: 22:19
Admit to: Med/Surg
Admit to doctor: hospitalist
Presentation/result/management discussed w/ accepting MD/DO: Hospitalist
Patient with high blood pressure during this ER visit?: No
Condition: Fair
Covid-19: Not Applicable
Discharge Problem:
Cellulitis of leg, right
Prescriptions:
No Action
cyanocobalamin (vitamin B-12) 1,000 MCG tablet
1,000 mcg PO DAILY
loratadine 10 MG tablet
10 mg PO DAILY
pantoprazole 40 MG tablet,delayed release (DR/EC)
40 mg PO DAILY
lisinopril 10 MG tablet
10 mg PO DAILY
nitroglycerin 0.4 MG tablet, sublingual
0.4 mg sublingual [id number] PRN (Reason: chest pain)
Patient Comments:
allopurinol 300 MG tablet
300 mg PO DAILY
multivitamin with folic acid [Tab-A-Katie] 1 TABLET tablet
1 tab PO DAILY
glipizide 10 MG tablet
10 mg PO BID
Jardiance 25 MG tablet
12.5 mg PO DAILY
rivaroxaban [Xarelto] 2.5 MG tablet
2.5 mg PO BID Qty: 120 0RF
ascorbic acid (vitamin C) [Vitamin C] 500 mg Tablet
500 mg PO DAILY
aspirin 81 mg Tablet,Chewable
81 mg PO DAILY Qty: 90 0RF
biotin 10,000 mcg Capsule
10,000 mcg PO DAILY
metformin 1,000 mg Tablet
1,000 mg PO BID
gabapentin 100 mg Capsule
100 mg PO DAILYPRN PRN (Reason: mild pain)
aluminum hydrox-magnesium carb 160-105 mg Tablet,Chewable
2 tab PO DAILYPRN PRN (Reason: gerd)
rosuvastatin [Crestor] 40 mg Tablet
40 mg PO HS
penicillin V potassium 500 mg tablet
500 mg PO BID Qty: 60 5RF
Referrals:
Blayne Bernardo MD [Family Provider, Family Practice]
Interventions
Interventions:
*Risk Screen - Suicide Last Done: 12/25/24 19:56
*General Assessment Last Done: 12/25/24 19:56
*Neglect/Abuse Screening Last Done: 12/25/24 19:56
*ED- Fall Risk Assessment Last Done: 12/25/24 20:33
*ED COVID-19 Vaccine History Last Done: 12/25/24 20:33
*ED Influenza Vaccine History Last Done: 12/25/24 20:33
Discharge Date and Time
Print Language: MEXICAN
[2024-12-25 21:50] LABS: Hematocrit 45.5 % (39.0-52.0); Hemoglobin 14.9 g/dL (13.0-18.0); Mean Corp Hgb Conc. 32.7 g/dL (33.0-37.0); Mean Corpuscular Volume 87.7 fL (80.0-94.0); Nucleated Red Blood Cells % 0 % (-); Platelet Count 167 10^3/uL (130-400); Red Cell Dist. Width 17.2 % (11.5-14.5)
[2024-12-25 22:14] LABS: ALT (SGPT) 28 U/L (0-50); AST (SGOT) 25 U/L (17-59); Albumin 4.5 g/dl (3.5-5.0); Alkaline Phosphatase 86 U/L (38-126); Blood Urea Nitrogen 22 mg/dl (9-20); Calcium 10.3 mg/dl (8.4-10.2); Carbon Dioxide 23 mmol/L (22-30); Chloride 107 mmol/L (98-107); Estimated Creatinine Clearance 66 ml/min; Glucose 116 mg/dl (70-99); Potassium 4.4 mmol/L (3.5-5.1); Sodium 139 mmol/L (135-145); Total Protein 7.4 g/dl (6.3-8.2); eGFR > 60.00
--- NOTE | 2024-12-25 22:50 | HPS.HSE ---
Addendum entered and electronically signed by Rico Gallardo DO 12/25/24 23:45:
Patient seen and examined independently. Agree with findings and plan as set forth by Courtney Landaverde PA-C.
Patient is a 79y M with PMH significant for ASCVD, hypertension and DM-II who presents to ED complaining of increased pain, swelling and redness of the RLE for the past 3-4 days. Patient has had recurrent episodes of cellulitis in the RLE since
April / May of this year. He was last admitted to in August with similar symptoms and was discharged on Pen VK to continue x 6 months. He remains on this medication. Patient states that he started Keflex on of this week when redness
and swelling started. His symptoms did not improve and he presented to ED for further evaluation.
He is followed by a Engineering Professor in [place] every 2 weeks for chronic wound on the R foot / plantar surface,. He was seen there yesterday and had local debridement.
He denies any systemic complaints of fevers / chills, N/V/D, etc.
Ass:
Recurrent RLE Cellulitis
Chronic R Foot Wound
ASCVD (h/o RLE bypass)
DM-II
Benign Hypertension
Gout
Plan:
Admit for further evaluation and treatment.
Restart IV Ancef. Hold PO PCN for now.
ID consulted for additional recommendations.
Check x-rays of R foot - +/- MRI if any concern for deep infection / bony involvement / etc. (Wound appears to be healing very well).
Wound Care eval for local care.
Continue usual CV med regimen.
Original Note:
Family Physician
-
Family Physician: Blayne Bernardo
Chief Complaint
-
Right Leg Redness
History of Present Illness
Patient is a 79 y/o male past medical history ASCVD, HTN, DM, and Peripheral Neuropathy who presents with right lower extremity redness x 3 days. Patient reports increasing redness and swelling of the leg. He reports a chronic right planter wound
which has been present since April. He notes he did have the wound debrided yesterday morning. He denies any fevers, sweats or chills. Patient reports this is 5th episode of episode of cellulitis since 2024.
Medical History
Past Medical History
Past Medical History: Reports Other
Additional Past Medical History:
ASCVD (CAD, PAD)
GERD
Hypertension
Hyperlipidemia
DM-II
MASLD
Peripheral Neuropathy
Gout
Chronic R foot plantar wound
Past Surgical History: Reports Other
Additional Past Surgical History:
CABG x 3
RLE Bypass
Bilateral GARO
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
Social History
Tobacco: Non-smoker
Personal:
Living: With Family
Family History
Family History: Not pertinent
Allergies / Home Medications
Allergies reflects when Allergies were last updated in [employer].
Home Medications with original date entered in [employer]
Allergy/Medication List:
Allergies
Allergy/AdvReac Type Severity Reaction Status Date / Time
clindamycin Allergy heartburn Verified 10/29/24 14:07
Gadolinium-Containing Allergy Hives Verified 10/29/24 14:07
Contrast Medi
morphine Allergy 'don't Verified 10/29/24 14:07
give it to
me'
arrested
one time
Home Medications
cyanocobalamin (vitamin B-12) 1,000 mcg tablet 1,000 mcg PO DAILY Supplement 07/29/14
loratadine 10 mg tablet 10 mg PO DAILY Allergies 07/29/14
pantoprazole 40 mg tablet,delayed release 40 mg PO DAILY Gastrointestinal issue 12/22/16
allopurinol 300 mg tablet 300 mg PO DAILY Gout 12/18/18
lisinopril 10 mg tablet 10 mg PO DAILY Blood pressure 12/18/18
multivitamin with folic acid 400 mcg tablet (Tab-A-Katie) 1 tab PO DAILY Supplement 12/18/18
nitroglycerin 0.4 mg sublingual tablet 0.4 mg sublingual [id number] PRN chest pain 12/18/18
empagliflozin 25 mg tablet (Jardiance) 12.5 mg PO DAILY Diabetes 09/20/20
glipizide 10 mg tablet 10 mg PO BID Diabetes 09/20/20
rivaroxaban 2.5 mg tablet (Xarelto) 2.5 mg PO BID #120 tabs 12/01/20
ascorbic acid (vitamin C) 500 mg tablet (Vitamin C) 500 mg PO DAILY Supplement 07/31/22
aspirin 81 mg chewable tablet 81 mg PO DAILY #90 tabs 07/31/22
aluminum hydrox-magnesium carb 160 mg-105 mg chewable tablet 2 tab PO DAILYPRN PRN gerd 07/06/24
biotin 10,000 mcg capsule 10,000 mcg PO DAILY Supplement 07/06/24
gabapentin 100 mg capsule 100 mg PO DAILYPRN PRN mild pain 07/06/24
metformin 1,000 mg tablet 1,000 mg PO BID Diabetes 07/06/24
rosuvastatin 40 mg tablet (Crestor) 40 mg PO HS High Cholesterol 07/06/24
penicillin V potassium 500 mg tablet 500 mg PO BID #60 tabs 08/26/24
Review of Systems
-
A 12 point ROS was completed and negative except as noted: Yes
Constitutional: Denies Fever or Chills
Respiratory: Denies Cough or Trouble Breathing
Cardiac: Denies Chest Pain or Palpitations
Skin: Reports See HPI
Physical Exam
Vital Signs
Vital Signs
Temp Pulse Resp BP Pulse Ox
97.5 F 81 16 126/73 98
12/25/24 20:00 12/25/24 19:56 12/25/24 19:56 12/25/24 20:24 12/25/24 20:30
Physical Exam
General: Comfortable and Conversant
HEENT: Anicteric and Moist mucous membranes
Respiratory: Clear and Non Labored Respirations
Cardiac: S1/S2, Regular Rhythm and Murmur
GI: Soft and Non Tender
Musculoskeletal: No Clubbing, No Cyanosis and Edema, Right Lower Extremity
Skin: Warm, Dry and Other (Moderate erythema involving the entire anterior right samuel area with increased warmth to touch; chronic wound right plantar aspect of 1st metatarsal head without increased drainage noted)
Neuro: Awake, Alert, Oriented and Nonfocal/grossly intact
Psych: Calm
Laboratory Results
-
12/25/24 21:43
12/25/24 21:43
Laboratory Results
Total Bilirubin 0.4 mg/dl (0.2-1.3) 12/25/24 21:43
AST 25 U/L (17-59) 12/25/24 21:43
ALT 28 U/L (0-50) 12/25/24 21:43
Alkaline Phosphatase 86 U/L (38-126) 12/25/24 21:43
Data Reviewed
-
Lab Data: Labs Reviewed by me
Old Records: Reviewed
Impression/Plan
-
Right Lower Extremity Cellulitis
-Continue Ancef
-Check Right Foot X-Ray
-Consult Wound Care
ASCVD (CAD, PAD)
-Continue aspirin and Xarelto
Diabetes Mellitus, Type II
-Check HgbA1c
-Continue Jardiance and Glipizide
-Hold Metformin
-Monitor sugars and continue coverage insulin
Essential Hypertension
-Continue lisinopril
Hyperlipidemia
-Continue Crestor
Gout
-Continue allopurinol
DVT proph: Xarelto
Code Status: Full Code
[2024-12-25] MEDS: VANCOCIN 540 MG IV (23:14)
[2024-12-25 23:44] VITALS: BP 125/70
[2024-12-26 01:31] VITALS: BP 134/64; BMI 27.7
[2024-12-26] MEDS: ANCEF 10 IV ×3 (02:01→17:46)
--- NOTE | 2024-12-26 02:11 | PTCARENOTE ---
Patient arrived via stretcher with dx RLE Cellulitis. AAOx3. Denies pain or discomfort. Call wen within reach. Oriented to unit.
[2024-12-26 06:56] LABS: Hematocrit 44.1 % (39.0-52.0); Hemoglobin 13.8 g/dL (13.0-18.0); Mean Corp Hgb Conc. 31.3 g/dL (33.0-37.0); Mean Corpuscular Volume 93.6 fL (80.0-94.0); Platelet Count 162 10^3/uL (130-400); Red Cell Dist. Width 17.2 % (11.5-14.5)
[2024-12-26 07:17] LABS: Blood Urea Nitrogen 24 mg/dl (9-20); Calcium 9.7 mg/dl (8.4-10.2); Carbon Dioxide 26 mmol/L (22-30); Chloride 107 mmol/L (98-107); Estimated Creatinine Clearance 66 ml/min; Glucose 127 mg/dl (70-99); Potassium 4.2 mmol/L (3.5-5.1); Sodium 139 mmol/L (135-145); eGFR > 60.00
[2024-12-26 07:36] LABS: Glucose - Point of Care 127 mg/dl (70-99)
[2024-12-26] MEDS: ZESTRIL 10 MG PO (07:52)
[2024-12-26] MEDS: CLARITIN 10 MG PO (07:52)
[2024-12-26] MEDS: FARXIGA 12.5 MG PO (07:52)
[2024-12-26] MEDS: LOW STRENGTH ASPIRIN 81 MG PO (07:52)
[2024-12-26 07:53] VITALS: BP 142/73
[2024-12-26] MEDS: XARELTO 2.5 MG PO ×2 (07:54→19:55)
[2024-12-26] MEDS: GLUCOTROL 10 MG PO ×2 (07:54→19:55)
[2024-12-26] MEDS: ZYLOPRIM 300 MG PO (07:54)
[2024-12-26] MEDS: PROTONIX 40 MG PO (07:54)
--- NOTE | 2024-12-26 09:45 | W.PN.HOSP.TC ---
Today's Communication/Plan
-
see bold
Assessment / Plan
Assessment / Plan
HPI: 79y M with PMH significant for ASCVD, hypertension and DM-II who presents to ED complaining of increased pain, swelling and redness of the RLE for the past 3-4 days. Patient has had recurrent episodes of cellulitis in the RLE since April /
May of this year. He was last admitted to in August with similar symptoms and was discharged on Pen VK to continue x 6 months. He remains on this medication. Patient states that he started Keflex on of this week when redness and
swelling started. His symptoms did not improve and he presented to ED for further evaluation. He is followed by a Competitive Intelligence Analyst in [place] every 2 weeks for chronic wound on the R foot / plantar surface,. He was seen there yesterday and had local
debridement.
Right Lower Extremity Cellulitis
-Appreciate ID input, hold [employer] pen VK, continue Ancef day 2
-Right foot x-ray negative for osteomyelitis, wound care consulted
-Check right lower extremity ultrasound for completeness sake
ASCVD (CAD, PAD)
-Continue aspirin and Xarelto
Diabetes Mellitus, Type II
-Hemoglobin A1c 7.3
-Continue Jardiance and Glipizide
-Resume Metformin
-Monitor sugars and continue coverage insulin
Essential Hypertension
-Continue lisinopril
Hyperlipidemia
-Continue Crestor
Gout
-Continue allopurinol
DVT proph: Xarelto
Code Status: Full Code
Total time spent to see the patient on the floor, examine the patient, review data and lab results, discuss treatment plan with patient, nursing staff around 39 minutes.
Physical Exam
General: No acute distress
HEENT: Normocephalic, Atraumatic, EOMI, MMM
Respiratory: Clear to Auscultation bilaterally
Cardiac: Normal S1/S2, Regular Rate and Rhythm
GI: Soft, Nontender, Nondistended, Normal Bowel Sounds
Extremities: No Clubbing, Cyanosis
Right lower extremity erythema, and edema from the ankle to below the knee
Neuro: Nonfocal/Grossly Intact
Psych: Calm, Cooperative
Anticipated Discharge: 24 - 48 hours
Subjective/Interval History
-
Date of Service: December 26, 2024
Patient has neuropathy, and has decreased sensation of his legs and hands. He denies right leg pain. Denies chest pain, denies shortness of breath. No fever, no vomiting.
Objective Data
-
Labs:
Laboratory Results
12/25/24 12/26/24
21:43 06:02
WBC 8.8 8.9
Hgb 14.9 13.8
Hct 45.5 44.1
Plt Count 167 162
Sodium 139 139
Potassium 4.4 4.2
Chloride 107 107
Carbon Dioxide 23 26
BUN 22 H 24 H
Creatinine 1.0 1.0
Glucose 116 H 127 H
Calcium 10.3 H 9.7
Total Bilirubin 0.4
AST 25
ALT 28
Alkaline Phosphatase 86
Vital Signs:
Vital Signs
Temp Pulse Resp BP Pulse Ox
97.6 F 73 17 142/73 96
12/26/24 07:53 12/26/24 07:53 12/26/24 07:53 12/26/24 07:53 12/26/24 07:53
I&O
12/25/24 12/26/24 12/27/24
06:59 06:59 06:59
Intake Total 650 / 650
Balance 650 / 650
[2024-12-26 10:02] LABS: Glycohemoglobin (HgbA1c) 7.3 % (4.0-5.9)
--- NOTE | 2024-12-26 10:07 | CON.ID ---
Consultation
-
Date/Time Consultation Requested: 12/26/24 1:19
Date/Time Consultation Performed: 12/26/24 10:07
Requesting Provider: Akhil NANCE
Performing Provider: Dr Abrams
Reason for Consultation: recurrent RLE cellulitis, on suppressive Pen-VK
Chief Complaint / Past History
Chief Complaint
right lower extremity redness
History of Present Illness
Ms Nagel is a 79 year old female with history of ASCVD, DM2, recurrent cellulitis on suppressive pen VK. Over the last 3-4 days he developed increased pain, swelling redness of the right leg. On , 4 days ago he was started on keflex
however he did not have any improvement. He has been on pen VK since August. Of note he has a chronic wound on the right plantar foot present since april for which he is following with podiatry. He had debridement of this wound 12/24. No fevers or
chills. Reports this is his 5th episode of cellulitis since May 2024.
Since arrival here he has been afebrile, bp stable, wbc 8.8, hbg 14.9, plt 167, no left shift, na 139, cr 1.0, a1c pending, t bili 0.4, ast 25, alt 28, alk phos 86, 12/26/24 right foot xray plantar wound at the level fo the first MTP joint no
evidence of osteomyelitis, MRSA screen in progress, blood cultures 1 set from 12/25 and one set from 12/26 in progress no growth to date, had a dose of vancomycin, now on cefazolin 2 gm IV q8 hrs. ID is consulted for assistance with management.
Past History
Additional Past Medical History:
ASCVD (CAD, PAD)
GERD
Hypertension
Hyperlipidemia
DM-II
MASLD
Peripheral Neuropathy
Gout
Chronic R foot plantar wound
Additional Past Surgical History:
CABG x 3
RLE Bypass
Bilateral GARO
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
Allergy History:
clindamycin Allergy (Verified 10/29/24 14:07)
heartburn
Gadolinium-Containing Contrast Medi Allergy (Verified 10/29/24 14:07)
Hives
morphine Allergy (Verified 10/29/24 14:07)
'don't give it to me' arrested one time
Medications Reviewed: Yes
Social History
Tobacco: Non-Smoker
Personal:
Living: With Family
Family History
Family History: Not Pertinent
Review of Systems
Vital Signs
Temp Pulse Resp BP Pulse Ox
97.6 F 73 17 142/73 96
12/26/24 07:53 12/26/24 07:53 12/26/24 07:53 12/26/24 07:53 12/26/24 07:53
Physical Exam
Physical Exam
Constitutional: No Acute Distress
Cardiovascular: Regular Rate and S1/S2; Negative Murmur or Rub
Pulmonary: Clear and Symmetric; Negative Wheezes, Rales or Rhonchi
Gastrointestinal: Soft, Non Tender, Non Distended and Normal Bowel Sounds
Skin: Warm, Dry and Rash (nonpurulent erythema of the right ankle to just below the knee, 1+ swelling); Negative Jaundice
Wound: Other (wound over the right metatarsal head without erythema, surrounding warmth, tenderness or fluctuance, scant surrounding callous)
Neurological: Awake
Lab / Diagnostic Study Results
12/26/24 06:02
12/26/24 06:02
Abs Immat Gran (auto) 0.0 10^3/uL (0-0.05) 12/25/24 21:43
Absolute Neuts (auto) 5.2 10^3/uL (1.4-6.5) 12/25/24 21:43
Absolute Lymphs (auto) 2.0 10^3/uL (1.2-3.4) 12/25/24 21:43
Absolute Monos (auto) 0.8 10^3/uL (0.1-0.6) H 12/25/24 21:43
Absolute Basos (auto) 0.1 10^3/uL (0-0.2) 12/25/24 21:43
Immature Gran % 0.3 % (0-0.5) 12/25/24 21:43
Neutrophils % 59.0 % (42.2-75.2) 12/25/24 21:43
Lymphocytes % 23.1 % (20.5-51.1) 12/25/24 21:43
Monocytes % 9.4 % (1.7-9.3) H 12/25/24 21:43
Eosinophils % 6.9 % (0-6) H 12/25/24 21:43
Basophils % 1.3 % (0-2) 12/25/24 21:43
Microbiology Results
Micro:
12/26/24 03:32 MRSA Screen - Pending
Nose
12/26/24 02:36 Blood Culture - Pending
Blood/Venous
12/25/24 21:43 Blood Culture - Pending
Blood/Venous
Assessment / Plan
RLE Cellulitis - nonpurulent
Recurrent cellulitis
DM2
- MRSA screen in progress
- blood cultures x2 are in progress
- continue cefazolin 2 gm iv q8 hours
- compression/elevation
- hold DRAFTING CLERK pen VK
[2024-12-26 11:29] LABS: Glucose - Point of Care 132 mg/dl (70-99)
--- NOTE | 2024-12-26 15:16 | CM ---
CM reviewed chart, patient seen bedside with , initial assessment completed.
Patient is a 79 year old M with PMH significant for ASCVD, hypertension and DM-II who presents to ED complaining of increased pain, swelling and redness of the RLE for the past 3-4 days.
Patient resides with his in a split level home, three steps to enter.
DME included CPAP, VN in past through [facility].
SNF hx: [facility] (2022)
PCP Patricia Lowry, [facility]. Pharmacy [facility] for immediate medications, otherwise [facility], confirms [facility].
POZO verbally reviewed, provided with copy, placed in chart.
Plan; home with , no needs anticipated
[2024-12-26 15:19] VITALS: BP 105/53
[2024-12-26 16:39] LABS: Glucose - Point of Care 151 mg/dl (70-99)
[2024-12-26] MEDS: GLUCOPHAGE 1000 MG PO (16:50)
[2024-12-26 19:40] LABS: Glucose - Point of Care 155 mg/dl (70-99)
[2024-12-26] MEDS: CRESTOR 40 MG PO (21:08)
[2024-12-26 23:07] VITALS: BP 120/66
[2024-12-27] MEDS: ANCEF 10 IV ×2 (02:02→09:40)
[2024-12-27 07:00] VITALS: BP 130/78
[2024-12-27 07:41] LABS: Glucose - Point of Care 95 mg/dl (70-99)
[2024-12-27] MEDS: GLUCOPHAGE 1000 MG PO (07:44)
[2024-12-27] MEDS: PROTONIX 40 MG PO (07:45)
[2024-12-27] MEDS: CLARITIN 10 MG PO (07:45)
[2024-12-27] MEDS: XARELTO 2.5 MG PO (07:45)
[2024-12-27] MEDS: ZYLOPRIM 300 MG PO (07:45)
[2024-12-27] MEDS: FARXIGA 12.5 MG PO (07:46)
[2024-12-27] MEDS: LOW STRENGTH ASPIRIN 81 MG PO (07:48)
[2024-12-27] MEDS: GLUCOTROL 10 MG PO (07:48)
[2024-12-27] MEDS: ZESTRIL 10 MG PO (07:51)
--- NOTE | 2024-12-27 08:37 | W.PN.HOSP.TC ---
Today's Communication/Plan
-
Discharge planning today
Assessment / Plan
Assessment / Plan
Physical exam:
General: Well Developed, Well Nourished and No Apparent Distress
HEENT: Normocephalic, Atraumatic and Moist Mucous Membranes
Respiratory: Clear to Auscultation; Negative Wheezes, Rales or Rhonchi
Cardiac: Regular Rhythm and S1/S2
GI: Soft, Nontender and Nondistended
Musculoskeletal: No Clubbing, No Cyanosis and No Edema.
Skin: Right lower extremity erythema and tenderness is improving.
Neuro: Awake, Alert and Oriented, no neurological deficits
Psych: Calm
A/P:
Right lower extremity cellulitis:
Switch IV antibiotics to oral today
Blood cultures no growth
MRSA screen negative
He would like to talk to piano case maker about his 'observation status'.
ID cleared him for discharge today
Plan to discharge pending ultrasound of the leg
History of PVD with bypass and right lower extremity:
On antiplatelets, anticoagulant, and statins.
Will obtain an arterial ultrasound today
If the above test is okay then he will follow-up with vascular surgery as outpatient
Chronic right foot wound:
Patient would like to follow-up with podiatry as outpatient and continue current wound care-discussed with wound care nurse today.
Rest of medical problems:
Hypertension
Hyperlipidemia
Gout
GERD
DVT prophylaxis:
Xarelto
CODE STATUS:
Full code
Anticipated Discharge: Today
Subjective/Interval History
-
Date of Service: December 27, 2024
Patient erythema and tenderness has improved. Ambulating well. Afebrile
Objective Data
-
Vital Signs:
Vital Signs
Temp Pulse Resp BP Pulse Ox
97.8 F 78 18 130/78 99
12/27/24 07:00 12/27/24 07:51 11/17/25 07:00 12/27/24 07:51 12/27/24 07:00
I&O
12/26/24 12/27/24 12/28/24
06:59 06:59 06:59
Intake Total 650 / 650 1380 / 1380
Balance 650 / 650 1380 / 1380
[2024-12-27 09:03] LABS: C-Reactive Protein 15.60 mg/L (0.0-10.00)
--- NOTE | 2024-12-27 09:34 | W.PN.ID1 ---
Date of Service
Date of Service: December 27, 2024
Today's Communication
- start keflex 500 mg PO QID x7 more day
Assessment / Plan
RLE Cellulitis - nonpurulent
Recurrent cellulitis
Chronic right plantar foot wound
DM2
- MRSA screen negative
- blood cultures x2 are in progress - no growth to date
- foot wound without evidence of infection at this time continue to follow up with podiatry
- start keflex 500 mg PO QID x7 more day
- compression/elevation as able
- CHRISTINE completed but not yet read
- hold EQUIPMENT OR MACHINERY CLEANER pen VK while on treatment with keflex, resume after completion of cefazolin
Chief Complaint
-: Cellulitis
Subjective / Review of Systems
afebrile
bp stable
no events overnight
Vital Signs / Physical Exam
Vital Signs
Vital Signs
Temp Pulse Resp BP Pulse Ox
97.8 F 78 18 130/78 99
12/27/24 07:00 12/27/24 07:51 12/27/24 07:00 12/27/24 07:51 12/27/24 07:00
Physical Exam
Constitutional: No Acute Distress
Cardiovascular: Regular Rate and S1/S2; Negative Murmur or Rub
Pulmonary: Clear and Symmetric; Negative Wheezes or Rales
Gastrointestinal: Soft, Non Tender, Non Distended and Normal Bowel Sounds
Skin: Warm, Dry and Rash (mild erythema of the right lower extremity, no warmth, trace edema); Negative Jaundice
Objective Data
Lab Data
Lab Results
12/26/24 06:02
12/26/24 06:02
Estimated Creat Clear 66 ml/min 12/26/24 06:02
Total Bilirubin 0.4 mg/dl (0.2-1.3) 12/25/24 21:43
AST 25 U/L (17-59) 12/25/24 21:43
ALT 28 U/L (0-50) 12/25/24 21:43
Alkaline Phosphatase 86 U/L (38-126) 12/25/24 21:43
C-Reactive Protein 15.60 mg/L (0.0-10.00) H 12/27/24 07:17
Most recent labs reviewed.
Micro Results:
12/26/24 03:32 MRSA Screen - Final
Nose No Methicillin Resistant Staphylococcus aureus isolated.
12/26/24 02:36 Blood Culture - Preliminary
Blood/Venous No Growth in 24 hours- Final report to follow
12/25/24 21:43 Blood Culture - Preliminary
Blood/Venous No Growth in 24 hours- Final report to follow
--- NOTE | 2024-12-27 10:19 | WOUNDNOTE ---
R PLANTAR FOREFOOT (PLANTAR 1ST MTH)
--- NOTE | 2024-12-27 10:20 | WOUNDNOTE ---
R 1ST MTH (PLANTAR)
--- NOTE | 2024-12-27 10:22 | WOUNDNOTE ---
[facility] RN note: Patient admitted with RLE cellulitis. Patient does his own wound care at home and follows a complaints coordinator for his R plantar foot wound.
See H&P for complete history.
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 Trace RLE edema. Mild diffuse RLE erythema (improved as per patient). Pedal pulses heard via
portable Doppler. Patient had an arterial Doppler done; results pending.
Appetite: good.
Pressure redistribution devices in place: [employer] Accumax. Patient has his diabetic sneakers with custom off loading inserts.
Plan: R foot dressing changed. Patient uses Betadine if wound moist and honey gel or antibiotic ointment if ulcer is dry. Ulcer swabbed with Betadine, covered with gauze pad and secured with Medipore tape. R knee high Chema wrap applied. Patient
stated he plans to wear a light compression sock at home.
Confirmed order with Dr. Barnes.
Updated care plan and will follow as needed. Patient to follow up with his complaints coordinator.
--- NOTE | 2024-12-27 10:40 | W.DCSUMMARY ---
Discharge Summary
Discharge Data
Date of Admission: 12/25/24
Date of Discharge: 12/27/24
-
Pending Results: No
Hospital Course
Patient is 79 years old male with history of diabetes mellitus, peripheral vascular disease, came into the hospital with right lower extremity cellulitis. Patient has a chronic wound on the right plantar foot and has been on penicillin VK
antibiotic for suppressive therapy. ID was consulted. Patient received IV antibiotics and improved substantially. MRSA screen negative. Blood cultures no growth. He has remained afebrile and hemodynamically stable. He had an arterial
ultrasound with CHIRSTINE and looks good so he will follow-up with his outpatient vascular surgeon as a regular checkup. ID has cleared him for discharge. He will be discharged in stable condition today.
Discharge Plan
-
Patient Disposition: Home (Routine Discharge)
Discharge Diagnosis/Procedures: Cellulitis of right lower extremity. Chronic right plantar foot wound. Diabetes mellitus type 2.
Diet: Diabetic, Carb Controlled
Activity: As tolerated
Blood Work: Please PCP to order CBC, BMP within 1 week
Activity Restrictions/Additional Instructions:
Wound Care Instructions
R plantar foot wound-resume prior wound care.
Follow up with your coating supervisor.
R knee high Chema wrap or compression sock. Check skin under Chema/sock daily and as needed.
Follow up at wound care center if needed, call for an appointment.
Referrals:
Blayne Bernardo MD [Family Provider, Family Practice] - in less than 1 week
Prescriptions:
New
cephalexin 500 mg Capsule
500 mg PO QID 7 Days Qty: 28 0RF
Continued
cyanocobalamin (vitamin B-12) 1,000 MCG tablet
1,000 mcg PO DAILY
loratadine 10 MG tablet
10 mg PO DAILY
pantoprazole 40 MG tablet,delayed release (DR/EC)
40 mg PO DAILY
lisinopril 10 MG tablet
10 mg PO DAILY
nitroglycerin 0.4 MG tablet, sublingual
0.4 mg sublingual [id number] PRN (Reason: chest pain)
Patient Comments:
allopurinol 300 MG tablet
300 mg PO DAILY
multivitamin with folic acid [Tab-A-Katie] 1 TABLET tablet
1 tab PO DAILY
glipizide 10 MG tablet
10 mg PO BID
Jardiance 25 MG tablet
12.5 mg PO DAILY
rivaroxaban [Xarelto] 2.5 MG tablet
2.5 mg PO BID Qty: 120 0RF
ascorbic acid (vitamin C) [Vitamin C] 500 mg Tablet
500 mg PO DAILY
aspirin 81 mg Tablet,Chewable
81 mg PO DAILY Qty: 90 0RF
biotin 10,000 mcg Capsule
10,000 mcg PO DAILY
metformin 1,000 mg Tablet
1,000 mg PO BID
gabapentin 100 mg Capsule
100 mg PO DAILYPRN PRN (Reason: mild pain)
aluminum hydrox-magnesium carb 160-105 mg Tablet,Chewable
2 tab PO DAILYPRN PRN (Reason: gerd)
rosuvastatin [Crestor] 40 mg Tablet
40 mg PO HS
Held
penicillin V potassium 500 mg tablet
500 mg PO BID Qty: 60 5RF
Hold Instructions: Resume on 01/03/25.
Discharge Orders:
Discharge Patient (As Directed); Ordered 12/27/24
Ordered By: Lee Barnes
Discharge Date and Time
Discharge Date/Time: 12/27/24 14:56
Print Language: MALTESE
[2024-12-27 11:40] LABS: Glucose - Point of Care 113 mg/dl (70-99)
[2024-12-27] MEDS: KEFLEX 500 MG PO (12:23)
[2024-12-27 14:23] VITALS: BP 146/79
--- NOTE | 2024-12-27 17:49 | CM ---
Discharge today. Home with , no needs.
Pt upset about the OBS status. States his 2 previous admissions were for the same issue and they were considered to be inpatient status. Explained process MD daily review of OBS patients to see if they qualify for inpatient. Pt was not satisfied
with this answer
== END 2024-12-27 14:56 | disposition home or self-care (01) ==
LOC: 4 WEST ACU 23:03
PROVIDERS: Family Medicine; Nurse Practitioner; Physician Assistant Medical; ADMITTING PHYSICIAN Hospitalist; ATTENDING PHYSICIAN Hospitalist; CONSULT PHYSICIAN Student in an Organized Health Care Education/Training Program; EMERGENCY PHYSICIAN Emergency Medicine; FAMILY PHYSICIAN Family Medicine
DX: L03.115 Cellulitis of right lower limb (principal); M79.661 Pain in right lower leg; E11.51 Type 2 diabetes mellitus with diabetic peripheral angiopathy without gangrene; I25.10 Atherosclerotic heart disease of native coronary artery without angina pectoris; I10 Essential (primary) hypertension; E11.621 Type 2 diabetes mellitus with foot ulcer; K76.0 Fatty (change of) liver, not elsewhere classified; L97.419 Non-pressure chronic ulcer of right heel and midfoot with unspecified severity; E11.42 Type 2 diabetes mellitus with diabetic polyneuropathy; E78.00 Pure hypercholesterolemia, unspecified; M10.9 Gout, unspecified; K21.9 Gastro-esophageal reflux disease without esophagitis; M79.89 Other specified soft tissue disorders; Z79.84 Long term (current) use of oral hypoglycemic drugs; Z79.01 Long term (current) use of anticoagulants; Z79.82 Long term (current) use of aspirin; Z87.891 Personal history of nicotine dependence; Z95.1 Presence of aortocoronary bypass graft; Z96.643 Presence of artificial hip joint, bilateral; Z88.1 Allergy status to other antibiotic agents; Z88.5 Allergy status to narcotic agent; Z88.8 Allergy status to other drugs, medicaments and biological substances; Z79.899 Other long term (current) drug therapy
CPT/HCPCS: 73630; 80048; 80053; 82962; 83036; 85025; 85027; 85652; 86140; 87040; 87070; 93922; 93925; 93971; 96365; 96366; 99284; G0378

== ENCOUNTER → 2025-01-14 10:01 | Outpatient (REF) | payer OTHER, SELFPAY | LOC: HWRAD 10:01 | PROVIDERS: ATTENDING PHYSICIAN Surgery Vascular Surgery; FAMILY PHYSICIAN Family Medicine | DX: I87.2 Venous insufficiency (chronic) (peripheral) (principal) | CPT/HCPCS: 93970 ==